=== PATIENT | female | born 1950 | race Caucasian/White ===

== ENCOUNTER 2017-10-26 06:06 | Inpatient (IN) | payer OTHER ==
[~2017-10-26] VITALS: Ht 152.4 cm; Wt 155.2 kg
[~2017-10-26 06:06] MED LIST: ATOR10; ATOR20 PO; Augmentin 875-1 EACH PO; CAPHYD PO; CLAR500 PO; CODGUAEL PO; CYCL10 PO; FERR325 PO; FURO20 PO; Flonase 0.05% N16 GM; HYDCHL25 PO; HYDGUAL120 PO; LOVA20 PO; MELO7.5 PO; METO100 PO; METO50 PO; Norco 5-325 Ta1 EACH PO; OMEP20ER; OMEP20ER PO; PANT40 PO; PROACE100; PROCODE120 PO; Prednisone20 MG PO; Protonix40 MG PO; RANI150 PO; ROFE25; RXHYDGUAS PO; SIMV10 PO; SUCR1; UNKNOWN BP MED; WARF2.5 PO; WARF3 PO; WARF5 PO; [UNRECOGNIZED DRUG - OTHER]
[2017-10-26] MEDS ORDERED: ATOR20 PO (06:35)
[2017-10-26] MEDS ORDERED: FURO40 PO (06:36)
[2017-10-26] MEDS ORDERED: ASPI325 PO (06:36)
[2017-10-26] MEDS ORDERED: Metoprolol Tar100 MG PO (06:36)
[2017-10-26] MEDS ORDERED: POTCHL10ER PO (06:36)
[2017-10-26] MEDS ORDERED: PANT40 PO (06:37)
[2017-10-26] MEDS ORDERED: AMLO5 PO (06:37)
[2017-10-26 06:39] LABS: BASOPHILS ABSOLUTE AUTO 0.08 K/mm3 (0.00-0.23); BASOPHILS PERCENT AUTO 0 % (0-2); EOSINOPHILS ABSOLUTE AUTO 0.26 K/mm3 (0.00-0.68); EOSINOPHILS PERCENT AUTO 1 % (0-6); Hematocrit 41.5 % (33.0-51.0); Hemoglobin 13.1 g/dL (11.5-16.0); IMMATURE GRAN ABSOLUTE AUTO 0.16 K/mm3 (0.00-0.10); IMMATURE GRAN PERCENT AUTO 1 % (0-1); LYMPHOCYTES ABSOLUTE AUTO 1.64 K/mm3 (0.84-5.20); LYMPHOCYTES PERCENT AUTO 7 % (21-46); MONOCYTES ABSOLUTE AUTO 1.18 K/mm3 (0.16-1.47); MONOCYTES PERCENT AUTO 5 % (4-13); Mean Corpuscular HGB 28.8 pg (26.0-34.0); Mean Corpuscular HGB Conc 31.6 g/dL (31.5-36.5); Mean Corpuscular Volume 91 fL (80-100); Mean Platelet Volume 9.1 fL (9.1-12.4); NEUTROPHILS ABSOLUTE AUTO 18.83 K/mm3 (1.96-9.15); NEUTROPHILS PERCENT AUTO 85 % (41-73); Platelet Count 301 K/mm3 (150-400); RDW Standard Deviation 49.8 fL (35.1-46.3); Red Blood Cell Count 4.55 M/mm3 (3.80-5.20); White Blood Cell Count 22.15 K/mm3 (4.00-11.30)
[2017-10-26 06:59] LABS: PCO2 Arterial 42.4 mmHg (35-45); PO2 Arterial 79.8 mmHg (80-100); pH Blood Arterial 7.42 (7.35-7.45)
[2017-10-26 07:00] LABS: Prothrombin Time Results 10.4 Sec (9.7-11.5)
[2017-10-26 07:01] LABS: Alanine Aminotransfer (ALT/SGP 18 U/L (12-78); Albumin, Blood 3.4 g/dL (3.4-5.0); Albumin/Globulin Ratio 0.7 (0.8-1.8); Alk Phos 99 U/L (50-136); Anion Gap 12 mmol/L (6-16); Aspartate Aminotrans (AST/SGOT 24 U/L (12-37); Bilirubin, Total 0.7 mg/dL (0.1-1.0); Blood Urea Nitrogen 11 mg/dL (8-24); CO2, Blood 26 mmol/L (21-32); Chloride, Blood 101 mmol/L (98-108); Creatinine, Blood 0.61 mg/dL (0.40-1.00); Globulin, Blood 5.2 g/dL (2.2-4.0); Glomerular Filtration Rate >60 (60-); Glucose, Blood 143 mg/dL (70-99); Potassium, Blood 3.2 mmol/L (3.5-5.5); Sodium, Blood 139 mmol/L (136-145); Total Protein, Blood 8.6 g/dL (6.4-8.2); Troponin I <0.015 ng/mL (0.000-0.040)
[2017-10-27 04:47] LABS: Hematocrit 35.2 % (33.0-51.0); Hemoglobin 11.1 g/dL (11.5-16.0); Mean Corpuscular HGB 28.1 pg (26.0-34.0); Mean Corpuscular HGB Conc 31.5 g/dL (31.5-36.5); Mean Corpuscular Volume 89 fL (80-100); Mean Platelet Volume 9.2 fL (9.1-12.4); Platelet Count 247 K/mm3 (150-400); RDW Coefficient Variation 15.2 % (11.7-14.2); RDW Standard Deviation 50.2 fL (35.1-46.3); Red Blood Cell Count 3.95 M/mm3 (3.80-5.20); White Blood Cell Count 10.17 K/mm3 (4.00-11.30)
[2017-10-27 05:08] LABS: Anion Gap 8 mmol/L (6-16); Blood Urea Nitrogen 8 mg/dL (8-24); Bun/Creatinine Ratio 12.5 (12.0-20.0); CO2, Blood 30 mmol/L (21-32); Calcium, Blood 8.6 mg/dL (8.5-10.1); Chloride, Blood 103 mmol/L (98-108); Creatinine, Blood 0.64 mg/dL (0.40-1.00); Glomerular Filtration Rate >60 (60-); Glucose, Blood 82 mg/dL (70-99); Magnesium, Blood 1.9 mg/dL (1.6-2.4); Phosphorus, Blood 3.5 mg/dL (2.5-4.9); Potassium, Blood 3.4 mmol/L (3.5-5.5); Sodium, Blood 141 mmol/L (136-145)
[2017-10-29 04:25] LABS: Anion Gap 8 mmol/L (6-16); Blood Urea Nitrogen 17 mg/dL (8-24); Bun/Creatinine Ratio 24.2 (12.0-20.0); CO2, Blood 34 mmol/L (21-32); Calcium, Blood 9.2 mg/dL (8.5-10.1); Chloride, Blood 96 mmol/L (98-108); Glomerular Filtration Rate >60 (60-); Glucose, Blood 97 mg/dL (70-99); Potassium, Blood 3.3 mmol/L (3.5-5.5); Sodium, Blood 138 mmol/L (136-145)
[2017-10-29] MEDS ORDERED: GUAIFENESIN-CODE5 ML PO (11:49)
[2017-10-29] MEDS ORDERED: FLUC150A PO (11:49)
[2017-10-29] MEDS ORDERED: Mag-Al Liquid30 ML PO (11:50)
[2017-10-29] MEDS ORDERED: NYSTRIT TOP (11:50)
[2017-10-29] MEDS ORDERED: AMOX875 PO (11:51)
[2017-10-30 04:52] LABS: Anion Gap 9 mmol/L (6-16); Blood Urea Nitrogen 22 mg/dL (8-24); Bun/Creatinine Ratio 32.8 (12.0-20.0); CO2, Blood 33 mmol/L (21-32); Calcium, Blood 9.4 mg/dL (8.5-10.1); Chloride, Blood 95 mmol/L (98-108); Creatinine, Blood 0.67 mg/dL (0.40-1.00); Glomerular Filtration Rate >60 (60-); Glucose, Blood 104 mg/dL (70-99); Potassium, Blood 3.2 mmol/L (3.5-5.5); Sodium, Blood 137 mmol/L (136-145)
[2018-01-15] MEDS ORDERED: Flonase 0.05% N16 GM (11:46)
[2018-01-15] MEDS ORDERED: Cheratussin AC118 ML PO (11:46)
[2018-07-05] MEDS ORDERED: ALBU90OI6 INH (18:00)
[2018-07-05] MEDS ORDERED: ANORO ELLIPTA1 EACH INH (18:01)
[2018-07-05] MEDS ORDERED: Prednisone20 MG PO (20:13)
[2018-07-05] MEDS ORDERED: BENZ100A PO (20:13)
== END 2017-10-30 16:27 | DRG 871 ==
LOC: ER 06:06 → PCU 08:39
PROVIDERS: Emergency Medicine; Family Medicine; Internal Medicine
PROC: 3E0234Z Introduction of Serum, Toxoid and Vaccine into Muscle, Percutaneous Approach (ICD-10-PCS; principal; 2017-10-27)
DX: A41.9 Sepsis, unspecified organism (principal); J96.01 Acute respiratory failure with hypoxia; I50.33 Acute on chronic diastolic (congestive) heart failure; I48.91 Unspecified atrial fibrillation; J18.9 Pneumonia, unspecified organism; I11.0 Hypertensive heart disease with heart failure; Z68.43 Body mass index [BMI] 50.0-59.9, adult; Z23 Encounter for immunization; E78.5 Hyperlipidemia, unspecified; E66.01 Morbid (severe) obesity due to excess calories; B37.9 Candidiasis, unspecified; E87.6 Hypokalemia; K21.9 Gastro-esophageal reflux disease without esophagitis; G47.33 Obstructive sleep apnea (adult) (pediatric); Z87.440 Personal history of urinary (tract) infections; Z91.041 Radiographic dye allergy status; Z91.048 Other nonmedicinal substance allergy status; Z79.01 Long term (current) use of anticoagulants; Z79.82 Long term (current) use of aspirin; Z79.899 Other long term (current) drug therapy; Z99.89 Dependence on other enabling machines and devices
CPT/HCPCS: 36415; 36600; 51702; 71045; 80048; 80053; 82803; 83605; 83735; 83880; 84100; 84484; 85025; 85027; 85379; 85610; 87040; 93005; 93010; 93306; 94010; 94640; 94660; 94664; 94762; 97110; 97162; 97166; 97530; 97535; 98960; 99285; G8978; G8979; G8987; G8988; J0456; J0696; J1200; J1650; J1940; J3480; J7030; J7050; Q2038

== ENCOUNTER → 2017-11-14 | Outpatient (CLI) | payer OTHER ==
[~2017-11-14] MED LIST changes: +ALBU90OI6 INH; +AMLO5 PO; +AMOX875 PO; +ANORO ELLIPTA1 EACH INH; +ASPI325 PO; +BENZ100A PO; +Cheratussin AC118 ML PO; +FLUC150A PO; +FURO40 PO; +GUAIFENESIN-CODE5 ML PO; +Mag-Al Liquid30 ML PO; +Metoprolol Tar100 MG PO; +NYSTRIT TOP; +POTCHL10ER PO
== END | disposition home or self-care (01) ==
LOC: LAB 12:01 → LAB SHORT 12:01
DX: L30.9 Dermatitis, unspecified (principal); B35.3 Tinea pedis
CPT/HCPCS: 87102; 87106; 87220

== ENCOUNTER 2018-05-06 16:08 | Emergency (ER) | payer OTHER ==
[~2018-05-06] VITALS: Ht 152.4 cm; Wt 149.7 kg
[~2018-05-06 16:08] MED LIST changes: -ALBU90OI6 INH; -ANORO ELLIPTA1 EACH INH; -BENZ100A PO
[2018-05-06 17:56] LABS: BASOPHILS ABSOLUTE AUTO 0.05 K/mm3 (0.00-0.23); BASOPHILS PERCENT AUTO 1 % (0-2); EOSINOPHILS ABSOLUTE AUTO 0.23 K/mm3 (0.00-0.68); EOSINOPHILS PERCENT AUTO 2 % (0-6); Hematocrit 38.1 % (33.0-51.0); Hemoglobin 12.7 g/dL (11.5-16.0); IMMATURE GRAN ABSOLUTE AUTO 0.04 K/mm3 (0.00-0.10); IMMATURE GRAN PERCENT AUTO 0 % (0-1); LYMPHOCYTES ABSOLUTE AUTO 1.72 K/mm3 (0.84-5.20); LYMPHOCYTES PERCENT AUTO 16 % (21-46); MONOCYTES ABSOLUTE AUTO 0.88 K/mm3 (0.16-1.47); MONOCYTES PERCENT AUTO 8 % (4-13); Mean Corpuscular HGB 29.4 pg (26.0-34.0); Mean Corpuscular HGB Conc 33.3 g/dL (31.5-36.5); Mean Corpuscular Volume 88 fL (80-100); Mean Platelet Volume 9.3 fL (9.1-12.4); NEUTROPHILS ABSOLUTE AUTO 8.14 K/mm3 (1.96-9.15); NEUTROPHILS PERCENT AUTO 73 % (41-73); Platelet Count 262 K/mm3 (150-400); RDW Coefficient Variation 14.8 % (11.7-14.2); RDW Standard Deviation 47.6 fL (35.1-46.3); Red Blood Cell Count 4.32 M/mm3 (3.80-5.20); White Blood Cell Count 11.06 K/mm3 (4.00-11.30)
[2018-05-06 18:41] LABS: Alanine Aminotransfer (ALT/SGP 18 U/L (12-78); Albumin, Blood 3.1 g/dL (3.4-5.0); Albumin/Globulin Ratio 0.7 (0.8-1.8); Alk Phos 78 U/L (50-136); Anion Gap 7 mmol/L (6-16); Aspartate Aminotrans (AST/SGOT 26 U/L (12-37); Bilirubin, Total 0.4 mg/dL (0.1-1.0); Blood Urea Nitrogen 11 mg/dL (8-24); CO2, Blood 34 mmol/L (21-32); Chloride, Blood 101 mmol/L (98-108); Creatinine, Blood 0.69 mg/dL (0.40-1.00); Globulin, Blood 4.6 g/dL (2.2-4.0); Glomerular Filtration Rate >60 (60-); Glucose, Blood 109 mg/dL (70-99); Potassium, Blood 2.9 mmol/L (3.5-5.5); Sodium, Blood 142 mmol/L (136-145); Total Protein, Blood 7.7 g/dL (6.4-8.2)
== END 2018-05-06 19:45 | disposition home or self-care (01) ==
LOC: ER 16:08
PROVIDERS: Internal Medicine
DX: R05 Cough (principal); E87.6 Hypokalemia; I10 Essential (primary) hypertension; E78.00 Pure hypercholesterolemia, unspecified; K21.9 Gastro-esophageal reflux disease without esophagitis; I48.91 Unspecified atrial fibrillation; Z91.041 Radiographic dye allergy status; Z91.048 Other nonmedicinal substance allergy status; Z79.899 Other long term (current) drug therapy; Z79.82 Long term (current) use of aspirin
CPT/HCPCS: 71046; 80053; 83880; 85025; 99283-25

== ENCOUNTER 2018-11-15 18:14 | Emergency (ER) | payer OTHER ==
[~2018-11-15] VITALS: Ht 152.4 cm; Wt 119.3 kg
[~2018-11-15 18:14] MED LIST changes: +ALBU90OI6 INH; +ANORO ELLIPTA1 EACH INH; +BENZ100A PO
[2018-11-15] MEDS ORDERED: Cheratussin AC118 ML PO (20:42)
[2018-11-15] MEDS ORDERED: Prednisone20 MG PO (20:42)
== END 2018-11-15 21:03 | disposition home or self-care (01) ==
LOC: ER 18:14
DX: J44.0 Chronic obstructive pulmonary disease with (acute) lower respiratory infection (principal); J20.9 Acute bronchitis, unspecified; J44.1 Chronic obstructive pulmonary disease with (acute) exacerbation; Z91.041 Radiographic dye allergy status; Z79.899 Other long term (current) drug therapy; Z79.82 Long term (current) use of aspirin; I10 Essential (primary) hypertension; E78.00 Pure hypercholesterolemia, unspecified; I48.91 Unspecified atrial fibrillation
CPT/HCPCS: 71046; 99283-25

== ENCOUNTER 2020-02-07 19:17 | Inpatient (IN) | payer OTHER ==
[~2020-02-07] VITALS: Ht 152.4 cm; Wt 132.7 kg
[2020-02-07] MEDS ORDERED: CELEBREX200 MG PO (19:41)
[2020-02-07] MEDS ORDERED: Cetirizine HCl10 MG PO (19:42)
[2020-02-07] MEDS ORDERED: MONT10T PO (19:42)
[2020-02-07] MEDS ORDERED: NEURONTIN300 MG PO (19:43)
[2020-02-07] MEDS ORDERED: HYDROCODONE-AC1 EAC1 PO (19:44)
[2020-02-07] MEDS ORDERED: FUROSEMIDE40 MG PO (19:44)
[2020-02-07 19:55] LABS: Source, Urine Voided
[2020-02-07 19:59] LABS: BASOPHILS ABSOLUTE AUTO 0.07 K/mm3 (0.00-0.23); BASOPHILS PERCENT AUTO 0 % (0-2); EOSINOPHILS ABSOLUTE AUTO 0.07 K/mm3 (0.00-0.68); EOSINOPHILS PERCENT AUTO 0 % (0-6); Hematocrit 40.2 % (33.0-51.0); Hemoglobin 13.2 g/dL (11.5-16.0); IMMATURE GRAN ABSOLUTE AUTO 0.23 K/mm3 (0.00-0.10); IMMATURE GRAN PERCENT AUTO 1 % (0-1); LYMPHOCYTES PERCENT AUTO 3 % (21-46); MONOCYTES ABSOLUTE AUTO 1.52 K/mm3 (0.16-1.47); MONOCYTES PERCENT AUTO 6 % (4-13); Mean Corpuscular HGB Conc 32.8 g/dL (31.5-36.5); Mean Corpuscular Volume 88 fL (80-100); Mean Platelet Volume 9.6 fL (9.1-12.4); NEUTROPHILS ABSOLUTE AUTO 24.08 K/mm3 (1.96-9.15); NEUTROPHILS PERCENT AUTO 90 % (41-73); Platelet Count 248 K/mm3 (150-400); RDW Coefficient Variation 14.3 % (11.7-14.2); RDW Standard Deviation 45.8 fL (35.1-46.3); Red Blood Cell Count 4.55 M/mm3 (3.80-5.20); White Blood Cell Count 26.77 K/mm3 (4.00-11.30)
[2020-02-07 20:01] LABS: Bilirubin, Urine Neg (Neg); Blood, Urine 5+ (Neg); Glucose Qualitative, Urine Neg (Neg); Ketones, Urine 1+ (Neg); Leukocyte Esterase, Urine 3+ (Neg); Nitrite, Urine Neg (Neg); Protein, Urine 3+ (Neg); Urobilinogen, Urine 1+ (Normal)
[2020-02-07 20:10] LABS: Alanine Aminotransfer (ALT/SGP 15 U/L (12-78); Albumin/Globulin Ratio 0.7 (0.8-1.8); Alk Phos 90 U/L (50-136); Anion Gap 8 mmol/L (6-16); Aspartate Aminotrans (AST/SGOT 22 U/L (12-37); Bilirubin, Total 0.8 mg/dL (0.1-1.0); Blood Urea Nitrogen 18 mg/dL (8-24); CO2, Blood 28 mmol/L (21-32); Calcium, Blood 9.1 mg/dL (8.5-10.1); Chloride, Blood 100 mmol/L (98-108); Globulin, Blood 4.6 g/dL (2.2-4.0); Glomerular Filtration Rate 47 (60-); Glucose, Blood 133 mg/dL (70-99); Potassium, Blood 3.3 mmol/L (3.5-5.5); Sodium, Blood 136 mmol/L (136-145); Total Protein, Blood 7.6 g/dL (6.4-8.2); Troponin I <0.015 ng/mL (0.000-0.040)
[2020-02-07 20:12] LABS: Appearance, Urine Cloudy (Clear); Color, Urine Yellow (P-Yellow)
[2020-02-07 20:13] LABS: Amorphous Light (0-Heavy); Bacteria Many /hpf; Squamous Epithelial Cells Few /hpf (Few); White Blood Cells, Urine TNTC /hpf (0-5)
--- NOTE | 2020-02-07 23:08 | NUR ---
transfer report from [facility] RECHECKER on PT being admitted with UTI & sepsis. Has morbid obesity MALINDA uses CPAP didn't bring to hospital, CHF, AFIB with RVR. Has 2nd liter of IVF running & recieved rocephin. On 2 l NC. Await admission.
--- NOTE | 2020-02-08 01:52 | NUR ---
69 year old female admitted with sepsis uti & lactic acid increased from 2.6 to 3.6 & she got fever 102.8 down to 101.0 oral. Afib with rvr tele applied per DR Persaud & rate 110s 120s at rest . has cpap applied by RT. BRIAN Barcenas called & wants PT transferred off floor for severe sepsis & she wants to have her sent to room ICU 3 PCU status, give IV levaquin & give additional 1 l NS bolus per body weight. Transfer report to [facility] HELPER TEACHER & will transport as soon as I verify orders. PT is full code status.
--- NOTE | 2020-02-08 03:10 | NUR ---
DTR Heather at [phone] updated on change to ICU bed 3 PCU status. PT transferred to ICU bed 3 PCU status for severe sepsis. Bedside report to Diana Irwin RN.
[2020-02-08 03:51] LABS: Hematocrit 35.3 % (33.0-51.0); Hemoglobin 11.3 g/dL (11.5-16.0); Mean Corpuscular HGB 28.6 pg (26.0-34.0); Mean Corpuscular Volume 89 fL (80-100); Mean Platelet Volume 9.4 fL (9.1-12.4); Platelet Count 198 K/mm3 (150-400); RDW Coefficient Variation 14.4 % (11.7-14.2); RDW Standard Deviation 46.9 fL (35.1-46.3); Red Blood Cell Count 3.95 M/mm3 (3.80-5.20); White Blood Cell Count 37.78 K/mm3 (4.00-11.30)
--- NOTE | 2020-02-08 04:00 | NUR ---
PT TO ICU 3 @ 0224 VIA HOSPITAL BED WITH MEDICAL FLOOR RN AND LAMINATING MACHINE OPERATOR, PT ALERT AND ORIENTED TO SELF, PLACE, EVENT, DATE AND FOLLOWING DIRECTIONS. O2 SATURATIONS>92% ON 2L PER NC, MONITOR SHOWS AFIB WITH HR 110-120'S, PT HYPOTENSIVE, ABX INFUSING. PT REPORTS MILD FLANK PAIN, USING BEDPAN TO VOID, ATTENDS IN PLACE. PT WITH REDDENED AREAS TO L FLANK, BREAST AND BACK, R POPLITEAL, REPORTS USING NYSTATIN AT HOME FOR THESE AREAS, SEE PHOTOS. IV TO RAC. 1L NS BOLUS BROUGHT DOWN WITH PT, BOLUS INFUSION STARTED BY THIS RN. CALL TO DR GAFFNEY @ 0330 REGARDING BP AND PTS ADMISSION STATUS, ORDERS FOR ICU STATUS AND CRITICAL CARE CONSULT. CALL PLACED TO DR ARANGO FOR CRITICAL CARE CONSULT, SPOKE WITH DR ARANGO @ 0330. PT TO BED CAM WITH VERY LITTLE URINE OUTPUT, APPROX 50ml. PT DENIES ANY CP OR SOB.
[2020-02-08 04:06] LABS: Calcium, Blood 7.7 mg/dL (8.5-10.1); Creatinine, Blood 1.27 mg/dL (0.40-1.00); Potassium, Blood 3.7 mmol/L (3.5-5.5)
[2020-02-08 04:10] LABS: BAND PERCENT MAN 11 % (0-8); BASOPHILS PERCENT MAN 0 % (0-2); EOSINOPHILS PERCENT MAN 0 % (0-6); LYMPHOCYTES ABSOLUTE MAN 2.64 K/mm3 (0.84-5.20); LYMPHOCYTES PERCENT MAN 7 % (21-46); MONOCYTES ABSOLUTE MAN 1.88 K/mm3 (0.16-1.47); MONOCYTES PERCENT MAN 5 % (4-13); NEUTROPHILS ABSOLUTE MAN 33.24 K/mm3 (1.96-9.15); SEG NEUTROPHILS PERCENT MAN 77 % (41-73); TOTAL CELLS COUNTED 100
--- NOTE | 2020-02-08 06:46 | NUR ---
SHIFT SUMMARY PT BECAME MORE HYPOTENSIVE AFTER ARRIVAL TO ICU, CONSULT CALLED TO DR ARANGO, DR ARANGO TO ICU, PLACED CENTRAL LINE TO RIJ, LEVOPHED INITIATED AND CURRENTLY INFUSING @ 5mcg/min (18.8ml/hr). PT REMAINS ORIENTED TO SELF, EVENT, LOCATION AND FOLLOWING DIRECTIONS BUT IS VERY DROWSY AND DIFFCULT TO AROUSE TOWARDS END OF SHIFT. CPAP IN PLACE WITH 2L BLEED IN, O2 SATURATIONS >95%. PT REMAINS IN AFIB WITH HR 100-120'S, MAPS>65 ON LEVO GTT. PT AFEBRILE SINCE ARRIVAL TO ICU. SKIN REMAINS WARM WITH REDDENED AREAS TO SKIN FOLDS, FOUL ODOR PRESENT. PT TOLERATING PO FLUIDS. PT DENIES ANY NEEDS AT THIS TIME.
--- NOTE | 2020-02-08 07:36 | NUR ---
ASSUMED CARE: RECEIVED BEDSIDE REPORT FROM NOC RN. PT APPEARS TO BE SLEEPING WITH CPAP IN PLACE AND NO ACUTE DISTRESS NOTED AT THIS TIME. LEVOPHED IS NOTED TO BE RUNNING AT 5 MCG/MIN ALONG WITH A MAINTENCE FLUID OF NS @ 100ML/HR. WILL CONTINUE TO MONITOR AND ASSESS FURHTER.
--- NOTE | 2020-02-08 08:15 | NUR ---
SEWELL: PLACED PT ON BEDPAN AFTER PT STATES SHE NEEDED TO URINATE. PT STATES SHE IS UNABLE TO AFTER LEAVING HER ON IT FOR A WHILE. UPON ASSESSMENT OF I&O, FURTHER REVIEW OF THE CHART AND TALKING WITH THE DR PLACED A TEMP SEWELL FOR STRICT I&O. UA SENT TO LAB.
[2020-02-08 08:37] LABS: Source, Urine Catheter
[2020-02-08 08:50] LABS: Bilirubin, Urine Neg (Neg); Blood, Urine 5+ (Neg); Glucose Qualitative, Urine Neg (Neg); Ketones, Urine Neg (Neg); Leukocyte Esterase, Urine 3+ (Neg); Nitrite, Urine Pos (Neg); Protein, Urine 3+ (Neg); Urobilinogen, Urine 1+ (Normal)
[2020-02-08 09:35] LABS: Appearance, Urine Turbid (Clear); Color, Urine Yellow (P-Yellow)
[2020-02-08 09:38] LABS: White Blood Cells, Urine TNTC /hpf (0-5)
[2020-02-08 09:39] LABS: Amorphous Heavy (0-Heavy); Bacteria Many /hpf; Squamous Epithelial Cells Few /hpf (Few)
--- NOTE | 2020-02-08 18:33 | NUR ---
BP & HR: PT LEVO WAS TURNED OFF AT 1655. PT HR WAS NOTED TO ELIVATED INTO THE 140'S WHEN PT WORKED WITH PHYSICAL THERAPY TO STAND AT THE BEDSIDE, BUT THEN HR APPEARED TO LEVEL OUT. AT APPROX 1730 PT HR IS NOTED TO BE CLIMBING AND IS HANGING OUT IN THE 120-140'S. DR ARANGO WAS NOTIFIED AND NEW ORDERS WERE PLACED. WILL CONTINUE TO MONITOR.
--- NOTE | 2020-02-08 18:51 | NUR ---
TEMP: PT TEMP WAS NOTED TO BE 98.8 TEMPORALLY AND CORE IS NOTED TO BE ELIVATED. PT STATES SHE DOES NOT FEEL COLD PREVIOUSLY.
--- NOTE | 2020-02-08 19:42 | NUR ---
ASSUMED CARE OF PT AT 1915. REPORT RECEIVED AT BEDSIDE. PT PRESENTS IN BED. ALERT AND ORIENTED. PLEASANT AND COOPERATIVE WITH CARE AND ASSESSMENT. IN NO APPARENT DISTRESS. WILL REVIEW CHART AND PLAN OF CARE FOR THIS PT.
--- NOTE | 2020-02-09 | NUR ---
SPOKE WITH BRIAN MIR CONCERNING PT'S TEMPERATURE ELEVATION AND NOT RESPONDING TO TYLENOL. ORDERS RECEIVED. HAVE TAUGHT PT NEW ORDERS INCLUDING CHANGE IN ANTIBIOTICS. PT VERBALIZES UNDERSTANDING. TEACHING ALSO DONE ON NOT APPLYING MORE BLANKETS WHEN SHE IS FEBRILE. SEE VITAL SIGN FLOWSHEET FOR TEMPERATURE PROGRESSION. HAVE MEDICATED PT WITH IBUPROFEN WITH NOTED TEMPERATURE DECLINE. WILL CONTINUE TO MONITOR PT.
--- NOTE | 2020-02-09 00:49 | NUR ---
PT'S BLOOD PRESSURE HAS BEEN WITH SBP IN 80'S AFTER SHE HAS GONE TO SLEEP. WILL CONSIDER RESTARTING LEVOPHED IF MAP DECREASES. CURRENTLY MAP MAINTAINING > 60. PT ASYMPTOMATIC.
--- NOTE | 2020-02-09 03:13 | NUR ---
PT'S BLOOD PRESSURES REMAIN LOW. HAVE RESTARTED LEVOPHED AT 4 MCG'S. WILL TITRATE TO MAINTAIN MAP > 60. OF NOTE: PT TURNED TO LEFT SIDE WITH HER RIGHT ARM ELEVATED ABOVE HEART. WILL CLOSELY MONITOR. PT AFEBRILE AT THIS TIME.
[2020-02-09 04:40] LABS: Hematocrit 33.8 % (33.0-51.0); Hemoglobin 10.8 g/dL (11.5-16.0); Mean Corpuscular HGB 28.8 pg (26.0-34.0); Mean Corpuscular Volume 90 fL (80-100); Mean Platelet Volume 9.4 fL (9.1-12.4); Platelet Count 198 K/mm3 (150-400); RDW Coefficient Variation 14.9 % (11.7-14.2); RDW Standard Deviation 49.1 fL (35.1-46.3); Red Blood Cell Count 3.75 M/mm3 (3.80-5.20); White Blood Cell Count 23.76 K/mm3 (4.00-11.30)
[2020-02-09 04:56] LABS: BAND PERCENT MAN 4 % (0-8); BASOPHILS PERCENT MAN 0 % (0-2); EOSINOPHILS PERCENT MAN 0 % (0-6); LYMPHOCYTES ABSOLUTE MAN 1.42 K/mm3 (0.84-5.20); LYMPHOCYTES PERCENT MAN 6 % (21-46); MONOCYTES ABSOLUTE MAN 0.95 K/mm3 (0.16-1.47); MONOCYTES PERCENT MAN 4 % (4-13); MYELOCYTE ABSOLUTE MAN 0.23 K/mm3 (0.00-0.00); MYELOCYTE PERCENT MAN 1 % (0-0); NEUTROPHILS ABSOLUTE MAN 21.14 K/mm3 (1.96-9.15); SEG NEUTROPHILS PERCENT MAN 85 % (41-73); TOTAL CELLS COUNTED 100
[2020-02-09 04:58] LABS: Bun/Creatinine Ratio 16.5 (12.0-20.0); Calcium, Blood 8.1 mg/dL (8.5-10.1); Creatinine, Blood 1.09 mg/dL (0.40-1.00); Magnesium, Blood 1.7 mg/dL (1.6-2.4); Phosphorus, Blood 2.5 mg/dL (2.5-4.9); Potassium, Blood 4.1 mmol/L (3.5-5.5)
--- NOTE | 2020-02-09 07:06 | NUR ---
LEVOPHED CURRENTLY ON STANDBY. PT'S BLOOD PRESSURE STABLE WITH MAP REMAINING >60. PT BEGINS TO RUN FEVER AGAIN, AND IS MEDICATED WITH 1000 MG TYLENOL. PENDING RESULTS. PT HAS TOLERATED CPAP THROUGHOUT THE SHIFT. REPORT GIVEN TO MERY MEEKS.
--- NOTE | 2020-02-09 07:45 | NUR ---
ASSUMED CARE: RECEIVED BEDSIDE REPORT FROM NOC RN. PT IN ROOM WITH SEVERAL BLANKETS ON AND TEMP IS NOTED TO BE ELIVATED 101.7 APPROX, REMOVED ALL BLANKETS EXCEPT FOR THE BOTTOM ONE. PT APPEARED TO BE SLEEPING PRIOR TO ENTERING THE ROOM ON CPAP WITH EVEN CHEST RISE AND FALL. NO ACUTE DISTRESS NOTED AT THIS TIME. WILL CONTINUE TO MONIOR AND ASSESS FURTHER. NO LEVOPHED RUNNING AT THIS TIME. BP APPEARS STABLE.
--- NOTE | 2020-02-09 14:45 | NUR ---
TO CT: PT WAS SITTING IN THE RECLINER WHEN SPECIALIZED DEVELOPER ARIVED TO TAKE PT TO CT. PT WAS ABLE TO TRANSFER TO THE IMMAGING CART WITH FWW. DICONECTED PT FROM ALL CORDS AND PLACED ON A TELEMETRY IN ORDER TO HAVE THE TLEMETRY TECH MONITOR WHILE AWAY.
--- NOTE | 2020-02-09 16:42 | NUR ---
Initial spiritual care note: Mrs. May states she has a strong john in a loving and attentive God. She feels well-loved and supported by her family and beleives she is being healed. She was appreciaitive of prayer and gentle encouragement. No fears/concerns presented. I will remain available.
--- NOTE | 2020-02-09 17:23 | NUR ---
PT RECEIVED FROM ICU VIA WHEELCHAIR, RECEIVED REPORT FROM STEFANI MEEKS. PT IS HERE FOR SEPSIS, PT RECEIVING IV ABO. PT IS ALERT AND ORIENTED X4, HRR AFIB ON THE 90'S-100'S DENIES CP/PRESSURE AT THIS TIME, SATS ABOVE 92% ON ROOMAIR, CPAP ON STANDBY FOR NIGHT TIME USE, AFEBRILE. 2PA ASSISTS VIA WALKER TO BEDSIDE COMMODE TOLERATING WELL. REDNESS ON SKIN FOLDS AND COCCYX. PSORIASIS ON NECK AND BACK OF HEAD. PT ABLE TO MAKE NEEDS KNOWN, CURRENTLY UP IN RECLINER EATING DINNER CALL LIGHTS WITHIN REACH. WILL MONITOR
--- NOTE | 2020-02-09 18:58 | NUR ---
PT WAS TESTED POSITIVE FOR COVID 19 AFTER RAPID TESTING WAS DONE AND COLLECTED. PROVIDERS INVOLVED MADE AWARE, PLAN FOR COBRA TRANSFER WAS CANCELLED. PT WAS PUT ON ISOLATION, PT TO STAY UNTIL FURTHER NOTICE BY PROVIDERS. TO DISCUSS THE PLAN WITH THE PATIENT IN THE MORNING. PT HAS BEEN ASYMPTOMATIC ALL SHIFT. WILL MONITOR
[2020-02-10 04:20] LABS: BASOPHILS ABSOLUTE AUTO 0.02 K/mm3 (0.00-0.23); BASOPHILS PERCENT AUTO 0 % (0-2); EOSINOPHILS ABSOLUTE AUTO 0.09 K/mm3 (0.00-0.68); EOSINOPHILS PERCENT AUTO 1 % (0-6); Hematocrit 33.6 % (33.0-51.0); Hemoglobin 10.8 g/dL (11.5-16.0); IMMATURE GRAN ABSOLUTE AUTO 0.08 K/mm3 (0.00-0.10); IMMATURE GRAN PERCENT AUTO 1 % (0-1); LYMPHOCYTES ABSOLUTE AUTO 1.37 K/mm3 (0.84-5.20); LYMPHOCYTES PERCENT AUTO 13 % (21-46); MONOCYTES ABSOLUTE AUTO 0.79 K/mm3 (0.16-1.47); MONOCYTES PERCENT AUTO 7 % (4-13); Mean Corpuscular HGB 28.6 pg (26.0-34.0); Mean Corpuscular HGB Conc 32.1 g/dL (31.5-36.5); Mean Corpuscular Volume 89 fL (80-100); Mean Platelet Volume 9.6 fL (9.1-12.4); NEUTROPHILS ABSOLUTE AUTO 8.61 K/mm3 (1.96-9.15); NEUTROPHILS PERCENT AUTO 79 % (41-73); Platelet Count 180 K/mm3 (150-400); RDW Coefficient Variation 14.8 % (11.7-14.2); RDW Standard Deviation 47.8 fL (35.1-46.3); Red Blood Cell Count 3.77 M/mm3 (3.80-5.20); White Blood Cell Count 10.96 K/mm3 (4.00-11.30)
[2020-02-10 04:41] LABS: Bun/Creatinine Ratio 15.4 (12.0-20.0); Calcium, Blood 8.5 mg/dL (8.5-10.1); Creatinine, Blood 0.98 mg/dL (0.40-1.00); Magnesium, Blood 1.9 mg/dL (1.6-2.4); Phosphorus, Blood 2.4 mg/dL (2.5-4.9); Potassium, Blood 3.6 mmol/L (3.5-5.5)
--- NOTE | 2020-02-10 05:45 | NUR ---
SHIFT SUMMARY NO ACUTE CHANGES T/O NIGHT. PT SLEPT WITH CPAP ON 1L. PATIENT HAD A RESTFUL NIGHT WITH MINIMAL DISTURBANCES. TEMP INCREASED TO 100.1, MEDICATED PT WITH PRN TYLENOL. TEMP 98,1. PT HAD LOOSE STOOL AND DIDN'T REALIZE SHE HAD A BM. PUT A BREIF ON HER. PT DENIES SOB, C/P AT THIS TIME. CALL LIGHT IN REACH.
--- NOTE | 2020-02-10 08:15 | NUR ---
AM NOTE... ASSUMED CARE OF PT APROX 0700, PT IS A&Ox4 AND 1P W/FWW TO THE CHAIR OR BSC. PT'S VS STABLE AT THIS TIME, PT IS IN AFIB IN THE 90'S-100'S PER MAJOR DONOR COORDINATOR. L/S CLEAR T/O DIM IN THE BASES ON RA, CPAP AT NIGHT. BT PRESENT AND HYPERACTIVE ABD IS LARGE, FIRM BUT NONTENDER TO PALP. TRACE EDEMA IS NOTED TO HER BLE. PT HAS AN IJ CENTRAL LINE THAT IS SL. SEWELL IS PATENT AND DRAINING TO GRAVITY IT IS TO BE D/C'D THIS AM. CALL LIGHT IN REACH WILL CONTINUE TO MONITOR.
--- NOTE | 2020-02-10 08:25 | NUR ---
PT UPDATE... PT'S HR WENT FROM 90'S-100'S AFIB TO 140'S-180'S RVR. PROVIDER IS AWARE. PT IS NOT SYMPTOMATIC AT THIS TIME. WILL CONTINUE TO MONITOR.
--- NOTE | 2020-02-10 09:19 | NUR ---
0840 The pt was having sustained atrial fibrillation with a ventricular rate of 160-190, so I was called to go see about the pt. The primary RN was with the doctor in another pt's room. The pt denied any distress, shortness of breath or discomfort. sTates that she feels fine. Blood pressure was greater than 150 systolic and greater than [address] Alexis came into the room, and as the pt was asymptomatic, he said to give her the scheduled metoprolol now, and call if her heart rate did not respond to this. 0925 The pt's heart rate is now 110-130. She remains aysmtomatic.
--- NOTE | 2020-02-10 18:46 | NUR ---
SHIFT SUMMARY... PT'S HR HAS BEEN IN THE 80'S-100'S WITH SPIKES UP TO THE 160'S WITH ACTIVITY. PT WAS MEDICATED PER EMAR. PT'S SEWELL WAS D/C'D THIS SHIFT AND PT HAS BEEN ABLE TO VOID IN THE BSC. PT HAS BEEN UP IN THE RECLINER CHAIR MOST OF THE DAY. VS HAVE BEEN STABLE. PT HAS HAD 2 INCONT LOOSE STOOLS THIS SHIFT. PT DENIES ANY CHEST PAIN/PRESSURE N/V OR SOB AND IS ASYPOMTOMATIC WITH INCREASES IN HER HEART RATE. CALL LIGHT IN REACH WILL CONTINUE TO MONITOR UNTIL REPORT IS GIVEN TO ONCOMING RN.
--- NOTE | 2020-02-11 06:01 | NUR ---
SHIFT SUMMARY PT SLEEPING IN ROOM COMFORTABLY AT THIS TIME. NO ACUTE CHANGES IN STATUS T/O NIGHT. PT REPORTS WAS VERY ACTIVE DURING DAY AND TIRED TONIGHT. RESP EVEN UNLABORED ON RA W/ SATS >92%. PT WORE CPAP T/O NIGHT AND LEONARD WELL. NO FURTHER BP OR HR INCREASES DURING NIGHT. PT DENIED OTHER NEEDS. CALL LIGHT IN REACH.
--- NOTE | 2020-02-11 08:38 | NUR ---
AM NOTE... ASSUMED CARE OF PT APROX 0700. PT IS A&Ox4 AND SBA W/FWW. PT WAS ADMITTED FOR SEPSIS. CURRENTLY PT'S VS STABLE. L/S CLEAR T/O ON RA CPAP FOR SLEEP. BT PRESENT AND HYPERACTIVE ABD SOFT AND NONTENDER TO PALP. PT IS CURRENTLY IN AFIB IN THE 90'S-100'S BUT WITH ACTIVITY HER HEART RATE JUMPS TO 180'S-200'S. PT IS NONSYMPTOMATIC WITH THE INCREASED HEART RATE. PT IS ANXIOUS TO D/C HOME, THE PROVIDER TOLD THE PT THAT MEDICATION CHANGES WERE MADE AND THAT WE NEEDED TO ENSURE HER HEART RATE WAS CONTROLLED BEFORE SHE COULD D/C HOME. PT VERBALIZED HER UNDERSTANDING. CALL LIGHT IN REACH WILL CONTINUE TO MONITOR.
[2020-02-11] MEDS ORDERED: METO100ER PO (16:50)
[2020-02-11] MEDS ORDERED: CIPR500 PO (16:51)
--- NOTE | 2020-02-11 17:26 | NUR ---
PT D/C HOME. PT D/C HOME WITH ALL OF PERSONAL BELONGINGS. IV WAS REMOVED WNL. D/C EDUCATION AND NEW MEDICATION EDUCAITION PROVIDED. PT VERABALIZED HER UNDERSTANDING. PT DENIED C/P, N/V OR SOB ON D/C.
== END 2020-02-11 17:23 | disposition home or self-care (01) | DRG 871 ==
LOC: ER 19:17 → MEDS 22:26 → ICUE 22:26 → MEDS 23:23 → ICUE 02-08 02:21 → PCU 02-09 15:40
PROVIDERS: Emergency Medicine; Internal Medicine Critical Care Medicine; Nurse Practitioner Acute Care; ADMIT Family Medicine
PROC: 05HM33Z Insertion of Infusion Device into Right Internal Jugular Vein, Percutaneous Approach (ICD-10-PCS; principal; 2020-02-08)
PROC: 3E043XZ Introduction of Vasopressor into Central Vein, Percutaneous Approach (ICD-10-PCS; 2020-02-08)
DX: A41.81 Sepsis due to Enterococcus (principal); R65.21 Severe sepsis with septic shock; N39.0 Urinary tract infection, site not specified; N17.9 Acute kidney failure, unspecified; Z68.44 Body mass index [BMI] 60.0-69.9, adult; W18.11XA Fall from or off toilet without subsequent striking against object, initial encounter; J44.9 Chronic obstructive pulmonary disease, unspecified; E78.5 Hyperlipidemia, unspecified; I10 Essential (primary) hypertension; M19.90 Unspecified osteoarthritis, unspecified site; L40.9 Psoriasis, unspecified; Z79.82 Long term (current) use of aspirin; E87.6 Hypokalemia; I48.91 Unspecified atrial fibrillation; Y92.9 Unspecified place or not applicable; G89.29 Other chronic pain; E66.01 Morbid (severe) obesity due to excess calories
CPT/HCPCS: 36415; 36556; 51702; 71045; 74176; 76770; 80048; 80053; 81001; 82947; 83036; 83605; 83735; 84100; 84484; 85025; 87040; 87077; 87086; 87186; 93005; 93010; 94660; 94762; 96361; 96365; 97112; 97163; 97530; 99285-25; A9270; A9270-GY; C1751; J0696; J1644; J1956; J2543; J7030; J7040; J7060; P9612

== ENCOUNTER 2022-01-16 00:49 | Inpatient (IN) | payer OTHER ==
[~2022-01-16] VITALS: Ht 152.4 cm; Wt 111.0 kg
[~2022-01-16 00:49] MED LIST changes: +CELEBREX200 MG PO; +CIPR500 PO; +Cetirizine HCl10 MG PO; +FUROSEMIDE40 MG PO; +HYDROCODONE-AC1 EAC1 PO; +METO100ER PO; +MONT10T PO; +NEURONTIN300 MG PO
[2022-01-16 01:28] LABS: BASOPHILS ABSOLUTE AUTO 0.06 K/mm3 (0.00-0.23); BASOPHILS PERCENT AUTO 0 % (0-2); EOSINOPHILS ABSOLUTE AUTO 0.05 K/mm3 (0.00-0.68); EOSINOPHILS PERCENT AUTO 0 % (0-6); Hematocrit 42.2 % (33.0-51.0); Hemoglobin 13.3 g/dL (11.5-16.0); IMMATURE GRAN ABSOLUTE AUTO 0.24 K/mm3 (0.00-0.10); IMMATURE GRAN PERCENT AUTO 1 % (0-1); LYMPHOCYTES ABSOLUTE AUTO 0.87 K/mm3 (0.84-5.20); LYMPHOCYTES PERCENT AUTO 4 % (21-46); MONOCYTES ABSOLUTE AUTO 1.33 K/mm3 (0.16-1.47); MONOCYTES PERCENT AUTO 7 % (4-13); Mean Corpuscular HGB 27.7 pg (26.0-34.0); Mean Corpuscular HGB Conc 31.5 g/dL (31.5-36.5); Mean Corpuscular Volume 88 fL (80-100); Mean Platelet Volume 9.2 fL (9.1-12.4); NEUTROPHILS ABSOLUTE AUTO 17.99 K/mm3 (1.96-9.15); NEUTROPHILS PERCENT AUTO 88 % (41-73); Platelet Count 226 K/mm3 (150-400); RDW Coefficient Variation 14.6 % (11.7-14.2); RDW Standard Deviation 46.5 fL (35.1-46.3); Red Blood Cell Count 4.81 M/mm3 (3.80-5.20); White Blood Cell Count 20.54 K/mm3 (4.00-11.30)
[2022-01-16 01:47] LABS: Albumin/Globulin Ratio 0.6 (0.8-1.8); Bilirubin, Total 0.5 mg/dL (0.1-1.0); Bun/Creatinine Ratio 12.7 (12.0-20.0); Calcium, Blood 9.7 mg/dL (8.5-10.1); Creatinine, Blood 1.1 mg/dL (0.40-1.00); Globulin, Blood 4.9 g/dL (2.2-4.0); Potassium, Blood 4.5 mmol/L (3.5-5.5); Total Protein, Blood 7.9 g/dL (6.4-8.2)
[2022-01-16 02:08] LABS: Source, Urine Straight Cath
[2022-01-16 02:15] LABS: Appearance, Urine Hazy (Clear); Bilirubin, Urine Neg (Neg); Blood, Urine 5+ (Neg); Color, Urine Yellow (P-Yellow); Glucose Qualitative, Urine Neg (Neg); Ketones, Urine Neg (Neg); Leukocyte Esterase, Urine 3+ (Neg); Nitrite, Urine Neg (Neg); Protein, Urine 2+ (Neg); Specific Gravity, Urine 1.005 (1.003-1.022); Urobilinogen, Urine 1+ (Normal)
[2022-01-16 02:25] LABS: Bacteria Many /hpf; Squamous Epithelial Cells Few /hpf (Few); White Blood Cells, Urine 50-100 /hpf (0-5)
[2022-01-16 04:52] LABS: BASOPHILS ABSOLUTE AUTO 0.03 K/mm3 (0.00-0.23); BASOPHILS PERCENT AUTO 0 % (0-2); EOSINOPHILS PERCENT AUTO 0 % (0-6); Hematocrit 31.7 % (33.0-51.0); Hemoglobin 10.5 g/dL (11.5-16.0); IMMATURE GRAN PERCENT AUTO 1 % (0-1); LYMPHOCYTES PERCENT AUTO 3 % (21-46); MONOCYTES ABSOLUTE AUTO 1.36 K/mm3 (0.16-1.47); MONOCYTES PERCENT AUTO 8 % (4-13); Mean Corpuscular HGB 28.6 pg (26.0-34.0); Mean Corpuscular HGB Conc 33.1 g/dL (31.5-36.5); Mean Corpuscular Volume 86 fL (80-100); Mean Platelet Volume 9.2 fL (9.1-12.4); NEUTROPHILS ABSOLUTE AUTO 14.38 K/mm3 (1.96-9.15); NEUTROPHILS PERCENT AUTO 88 % (41-73); Platelet Count 185 K/mm3 (150-400); RDW Coefficient Variation 14.4 % (11.7-14.2); RDW Standard Deviation 45.4 fL (35.1-46.3); Red Blood Cell Count 3.67 M/mm3 (3.80-5.20); White Blood Cell Count 16.27 K/mm3 (4.00-11.30)
[2022-01-16 05:12] LABS: Albumin, Blood 2.5 g/dL (3.4-5.0); Albumin/Globulin Ratio 0.6 (0.8-1.8); Bilirubin, Total 0.3 mg/dL (0.1-1.0); Bun/Creatinine Ratio 13.6 (12.0-20.0); Calcium, Blood 8.4 mg/dL (8.5-10.1); Creatinine, Blood 1.03 mg/dL (0.40-1.00); Globulin, Blood 3.9 g/dL (2.2-4.0); Potassium, Blood 3.9 mmol/L (3.5-5.5); Total Protein, Blood 6.4 g/dL (6.4-8.2)
--- NOTE | 2022-01-16 06:21 | NUR ---
SHIFT SUMMARY ASSUMED CARE OF PT AT 0500. PT IS A/OX4. HEART SOUNDS IRREGULAR, TELE SHOWS AFIB. LUNG SOUDNS CLEAR. PT REQUESTING OXYGEN DUE TO WANTING SLEEP BECUASE SHE DOES NOT HAVE HER CPAP; WILL PASS ON TO DAYSHIFT SHE WILL NEED AN ORDER FOR CPAP. PT WAS CONTIENT OF URINE IN A BEDPAN. PT HAS REDNESS UNDER HER FOLDS AND ON HER COCCYX, PICTURES IN CHART. PT HAS AN ABRASION ON HER L KNEE. PT C/O PAIN IN HER WHOLE R LEG, MEDICATED PER EMAR AND HEAT PACK APPLIED. PT NPO FOR POSSIBLE PROCEDURE TODAY.
[2022-01-16 10:59] LABS: Influenza A, PCR NEGATIVE (NEGATIVE); Influenza B, PCR NEGATIVE (NEGATIVE); Resp Syncytial Virus, PCR NEGATIVE (NEGATIVE)
[2022-01-16 11:15] LABS: SARS-Cov-2 (COVID-19) PCR, MMC POSITIVE (NEGATIVE)
--- NOTE | 2022-01-16 13:32 | NUR ---
Assumed care of patient at approx 1145. Pt alert, oriented x4, anxious but cooperative with care. Pt reporting right leg pain, medicated per emar. Pt on BR. Pt remains NPO for procedure this afternoon/evening. Pt denies chest pain, sob, nasuea, dizziness. Pt reports numbness/tingling to ble, baseline. Ls clear dim in bases, spo2 >90% on ra, resp rate wnl, breathing even and unlabored. Pt tele afib 60-80's, bp stable. Abd soft nontender, pt reports frequently passing gas. Pt having frequent urination on bedpan. Other vss. No s/sx of distress noted. Will continue to monitor.
[2022-01-16 18:33] LABS: Source, Urine Nephrostomy
[2022-01-16 18:48] LABS: Appearance, Urine Bloody (Clear); Bilirubin, Urine Neg (Neg); Blood, Urine 4+ (Neg); Color, Urine Red (P-Yellow); Glucose Qualitative, Urine Neg (Neg); Ketones, Urine Neg (Neg); Leukocyte Esterase, Urine Neg (Neg); Nitrite, Urine Neg (Neg); Protein, Urine 4+ (Neg); Urobilinogen, Urine NORM (Normal)
--- NOTE | 2022-01-16 18:54 | NUR ---
Pt to yard laborer this afternoon, back to room with left nephrostomy. Dressing c/d/i, drainage in tube red. Vss. No other acute changes. Will continue to monitor.
[2022-01-16 19:22] LABS: Bacteria Rare /hpf; Red Blood Cells, Urine TNTC /hpf (0-2); Squamous Epithelial Cells Not Seen /hpf (Few); White Blood Cells, Urine 0-2 /hpf (0-5)
[2022-01-17 04:05] LABS: BASOPHILS ABSOLUTE AUTO 0.02 K/mm3 (0.00-0.23); BASOPHILS PERCENT AUTO 0 % (0-2); EOSINOPHILS PERCENT AUTO 0 % (0-6); Hematocrit 36.8 % (33.0-51.0); Hemoglobin 11.7 g/dL (11.5-16.0); IMMATURE GRAN ABSOLUTE AUTO 0.02 K/mm3 (0.00-0.10); IMMATURE GRAN PERCENT AUTO 0 % (0-1); LYMPHOCYTES ABSOLUTE AUTO 1.13 K/mm3 (0.84-5.20); LYMPHOCYTES PERCENT AUTO 15 % (21-46); MONOCYTES PERCENT AUTO 10 % (4-13); Mean Corpuscular HGB 27.9 pg (26.0-34.0); Mean Corpuscular HGB Conc 31.8 g/dL (31.5-36.5); Mean Corpuscular Volume 88 fL (80-100); Mean Platelet Volume 9.6 fL (9.1-12.4); NEUTROPHILS ABSOLUTE AUTO 5.48 K/mm3 (1.96-9.15); NEUTROPHILS PERCENT AUTO 75 % (41-73); Platelet Count 164 K/mm3 (150-400); RDW Coefficient Variation 14.7 % (11.7-14.2); RDW Standard Deviation 47.5 fL (35.1-46.3); White Blood Cell Count 7.35 K/mm3 (4.00-11.30)
[2022-01-17 04:32] LABS: Albumin, Blood 2.4 g/dL (3.4-5.0); Albumin/Globulin Ratio 0.6 (0.8-1.8); Bilirubin, Total 0.2 mg/dL (0.1-1.0); Bun/Creatinine Ratio 13.5 (12.0-20.0); Calcium, Blood 8.7 mg/dL (8.5-10.1); Creatinine, Blood 0.96 mg/dL (0.40-1.00); Potassium, Blood 3.7 mmol/L (3.5-5.5); Total Protein, Blood 6.4 g/dL (6.4-8.2)
--- NOTE | 2022-01-17 05:59 | NUR ---
SHIFT SUMMARY ASSUMED CARE OF PT AT 1900. PT IS A/OX4. HEART SOUNDS IRREGULAR. LUNG SOUNDS CLEAR. PT URINE WAS SHONDA RED, DISCUSSED WITH CHARGE NURSE. NEPHROSTOMY TUBE WAS ALSO DRAINING SHONDA RED BLOOD. DRESSING C/D/I, PT ONLY COMPLAINT WAS PAIN IN HER LEG. PT WAS ABLE TO TRANSFER WITH 1-2P ASSIST TO [facility] BUT SAID SHE WAS TIRED AND REFUSED TO GET UP THE REST OF THE NIGHT AND USED THE BEDPAN. PT WAS EDUCATED ABOUT HOW SHE WILL HAVE TO GO BACK HOEM AND DO THIS HERESELF AND NEEDED TO START DOING THINGS ON HER OWN AGAIN.
--- NOTE | 2022-01-17 18:05 | NUR ---
SHIFT NOTE PT A/O X3. REMAINS ON RA T/O THE DAY, PT ASKED TO GO ON BIPAP TO SLEEP BUT QUICKLY DEMANDED IT BE REMOVED SHE HAD DECIDED NOT TO NAP. PT WAS A 2 PERSON SBA TO BS TODAY, HR NOTED TO BECOME VERY ELEVATED WHILE AMBULATING BUT DOES QUCIKLY RETURN TO HER BASELINE OF 90s-110s. VSS. PT DID WORK WITH PHYSICAL THERAPY TODAY. SEWELL CATH WAS PLACED TODAY TO KEEP ACCURATE OUTPUT, SEWELL DRAINING WELL TO GRAVITY WITH TEA COLORED OUTPUT. NEPHROSTOMY DRESSING CLEAN AND INTACT, DRAINING WELL T/O THE DAY.
--- NOTE | 2022-01-18 06:03 | NUR ---
SHIFT SUMMARY ASSUMED CARE OF PT AT 1900. PT IS A/OX4. HEART SOUNDS IRREGULAR, AFIB. LUNG SOUNDS SIMINISHED AT THE BASES. URINE IN CATHETER WAS CLEAR AND YELLOW. NEPHROSTOMY IS YELLOW WITH SEDIMENT. PT HAD NO COMPLAINTS DURING THE NIGHT UNTIL THIS AM WHEN SHE AWOKE AND HER HR JUMPED TO 200. PT WAS ASYMTOMATIC AND WAS ONLY RESTING IN BED. HR WENT BACK DOWN TO 130 BUT LOPRESSOR WAS GIVEN AND RATE IS BACK INTO THE 100S. PT WOULD ALSO DESATURATE TO 79% DURING THE NIGHT WHILE IN DEEP SLEEP. RT CONSULTED AND SAID PT MIGHT HAVE A CENTRAL SLEEP APNEA AND NEEDED A DIFFERENT MASK BUT CANNOT TOUCH PT HOME CPAP PER POLICY. PT WOULD LI BACK UP TO 95% WHEN AWOKEN AND WAS ASYMPTOMTIC.
[2022-01-18] MEDS ORDERED: ALBU90OI INH (09:42)
[2022-01-18] MEDS ORDERED: METO25 PO (09:42)
[2022-01-18] MEDS ORDERED: Triamcinolone A15 G2 TOP (09:43)
--- NOTE | 2022-01-18 09:44 | NUR ---
MEDICATION LIST UPDATED PER RECRODS FROM [facility] PT REPORTS NON-COMPLIANCE WITH LASIX STS THAT SHE HAS NOT BEEN TAKING TI AT HOME, IT IS CONFIRMED THAT SHE HAS NOT FILLED LASIX THIS YEAR PER CLAIM HISTORY
[2022-01-18] MEDS ORDERED: GABA300 PO (13:07)
[2022-01-18] MEDS ORDERED: HYDR1TAB94 PO (13:08)
[2022-01-18] MEDS ORDERED: LACT PO (14:57)
[2022-01-18] MEDS ORDERED: LEVOFLOXACIN750 M3 PO (14:57)
--- NOTE | 2022-01-18 16:40 | NUR ---
PT D/C TO HOME, IV REMOVED AND PRESURE DRESSED. PT EXPRESSED UNDERSTANDING OF D/C TEACHING. NEPHROSTOMY TUBE DRESSING CHANGED. FAMILY EDUCATED HOW TO MANAGE NEPRHOSTOMY
== END 2022-01-18 16:15 | disposition home or self-care (01) | DRG 871 ==
LOC: ER 00:49 → PCU 03:58
PROVIDERS: Emergency Medicine; Family Medicine; Radiology Diagnostic Radiology; Student in an Organized Health Care Education/Training Program; ADMIT Family Medicine
PROC: 3E03329 Introduction of Other Anti-infective into Peripheral Vein, Percutaneous Approach (ICD-10-PCS; principal; 2022-01-16)
PROC: 0T9130Z Drainage of Left Kidney with Drainage Device, Percutaneous Approach (ICD-10-PCS; 2022-01-18)
DX: A41.51 Sepsis due to Escherichia coli [E. coli] (principal); G92.8 Other toxic encephalopathy; U07.1 COVID-19; Z68.43 Body mass index [BMI] 50.0-59.9, adult; N13.6 Pyonephrosis; E87.2 Acidosis; R65.20 Severe sepsis without septic shock; I48.91 Unspecified atrial fibrillation; I10 Essential (primary) hypertension; K21.9 Gastro-esophageal reflux disease without esophagitis; E78.5 Hyperlipidemia, unspecified; J44.9 Chronic obstructive pulmonary disease, unspecified; E66.9 Obesity, unspecified; Z90.710 Acquired absence of both cervix and uterus; Z98.890 Other specified postprocedural states; Z98.84 Bariatric surgery status; Z99.89 Dependence on other enabling machines and devices; Z91.048 Other nonmedicinal substance allergy status; Z91.041 Radiographic dye allergy status; Z79.82 Long term (current) use of aspirin; Z79.899 Other long term (current) drug therapy; W06.XXXA Fall from bed, initial encounter
CPT/HCPCS: 0241U; 36415; 50432; 70450; 71045; 72125; 72192; 74176; 76937; 80053; 81001; 83605; 83880; 84484; 85025; 87040; 87077; 87086; 87186; 93005; 93010; 94660; 94762; 96365; 96366; 96375; 97110; 97162; 97166; 97530; 99152; 99153; 99285-25; A9270; C1729; C1769; J0696; J1160; J1644; J2250; J3010; J7030; J7040; Q9967

== ENCOUNTER → 2022-02-25 | Outpatient (CLI) | payer OTHER ==
[~2022-02-25] MED LIST changes: +ALBU90OI INH; +GABA300 PO; +HYDR1TAB94 PO; +LACT PO; +LEVOFLOXACIN750 M3 PO; +METO25 PO; +Triamcinolone A15 G2 TOP
[2022-02-25 13:04] LABS: BASOPHILS ABSOLUTE AUTO 0.05 K/mm3 (0.00-0.23); BASOPHILS PERCENT AUTO 1 % (0-2); EOSINOPHILS ABSOLUTE AUTO 0.12 K/mm3 (0.00-0.68); EOSINOPHILS PERCENT AUTO 1 % (0-6); Hemoglobin 11.1 g/dL (11.5-16.0); IMMATURE GRAN ABSOLUTE AUTO 0.06 K/mm3 (0.00-0.10); IMMATURE GRAN PERCENT AUTO 1 % (0-1); LYMPHOCYTES ABSOLUTE AUTO 1.42 K/mm3 (0.84-5.20); LYMPHOCYTES PERCENT AUTO 13 % (21-46); MONOCYTES PERCENT AUTO 5 % (4-13); Mean Corpuscular HGB 29.1 pg (26.0-34.0); Mean Corpuscular HGB Conc 31.7 g/dL (31.5-36.5); Mean Corpuscular Volume 92 fL (80-100); Mean Platelet Volume 8.9 fL (9.1-12.4); NEUTROPHILS ABSOLUTE AUTO 8.81 K/mm3 (1.96-9.15); NEUTROPHILS PERCENT AUTO 80 % (41-73); Platelet Count 297 K/mm3 (150-400); RDW Coefficient Variation 17.8 % (11.7-14.2); RDW Standard Deviation 59.1 fL (35.1-46.3); Red Blood Cell Count 3.81 M/mm3 (3.80-5.20); White Blood Cell Count 11.06 K/mm3 (4.00-11.30)
[2022-02-25 13:14] LABS: Bun/Creatinine Ratio 6.5 (12.0-20.0); Calcium, Blood 9.1 mg/dL (8.5-10.1); Creatinine, Blood 0.93 mg/dL (0.40-1.00); Potassium, Blood 2.6 mmol/L (3.5-5.5)
== END | disposition home or self-care (01) ==
LOC: LAB 13:00 → LAB SHORT 13:00
PROVIDERS: Family Medicine
DX: R06.02 Shortness of breath (principal)
CPT/HCPCS: 80048; 83880; 84484; 85025

== ENCOUNTER 2023-03-14 16:00 | Emergency (ER) | payer OTHER ==
[~2023-03-14] VITALS: Ht 152.4 cm; Wt 113.4 kg
[2023-03-14 16:24] LABS: BASOPHILS ABSOLUTE AUTO 0.04 K/mm3 (0.00-0.23); BASOPHILS PERCENT AUTO 0 % (0-2); EOSINOPHILS ABSOLUTE AUTO 0.28 K/mm3 (0.00-0.68); EOSINOPHILS PERCENT AUTO 3 % (0-6); Hematocrit 36.1 % (33.0-51.0); IMMATURE GRAN ABSOLUTE AUTO 0.04 K/mm3 (0.00-0.10); IMMATURE GRAN PERCENT AUTO 0 % (0-1); LYMPHOCYTES ABSOLUTE AUTO 2.07 K/mm3 (0.84-5.20); LYMPHOCYTES PERCENT AUTO 20 % (21-46); MONOCYTES ABSOLUTE AUTO 0.83 K/mm3 (0.16-1.47); MONOCYTES PERCENT AUTO 8 % (4-13); Mean Corpuscular HGB 30.1 pg (26.0-34.0); Mean Corpuscular HGB Conc 33.2 g/dL (31.5-36.5); Mean Corpuscular Volume 91 fL (80-100); Mean Platelet Volume 9.3 fL (9.1-12.4); NEUTROPHILS ABSOLUTE AUTO 7.29 K/mm3 (1.96-9.15); NEUTROPHILS PERCENT AUTO 69 % (41-73); Platelet Count 259 K/mm3 (150-400); RDW Coefficient Variation 14.2 % (11.7-14.2); Red Blood Cell Count 3.99 M/mm3 (3.80-5.20); White Blood Cell Count 10.55 K/mm3 (4.00-11.30)
[2023-03-14 16:42] LABS: Albumin, Blood 2.1 g/dL (3.4-5.0); Albumin/Globulin Ratio 0.4 (0.8-1.8); Bilirubin, Total 0.3 mg/dL (0.1-1.0); Bun/Creatinine Ratio 10.5 (12.0-20.0); Creatinine, Blood 1.24 mg/dL (0.40-1.00); Globulin, Blood 4.7 g/dL (2.2-4.0); Total Protein, Blood 6.8 g/dL (6.4-8.2)
[2023-03-14 16:45] VITALS: BP 107/65
[2023-03-14] MEDS ORDERED: [UNRECOGNIZED DRUG - OTHER] MC (17:14)
== END 2023-03-14 17:32 | disposition home or self-care (01) ==
LOC: ER 16:00
PROVIDERS: Emergency Medicine
DX: I95.9 Hypotension, unspecified (principal); Z77.22 Contact with and (suspected) exposure to environmental tobacco smoke (acute) (chronic); Z88.8 Allergy status to other drugs, medicaments and biological substances; Z79.2 Long term (current) use of antibiotics; Z79.891 Long term (current) use of opiate analgesic; Z79.899 Other long term (current) drug therapy; I10 Essential (primary) hypertension; E78.5 Hyperlipidemia, unspecified; J44.9 Chronic obstructive pulmonary disease, unspecified; I48.91 Unspecified atrial fibrillation; Z79.01 Long term (current) use of anticoagulants
CPT/HCPCS: 80053; 84484; 85025; 93005; 93010; 99284-25; J7030

== ENCOUNTER 2023-06-22 01:57 | Inpatient (IN) | payer OTHER ==
[~2023-06-22] VITALS: Ht 152.4 cm; Wt 68.0 kg
[2023-06-22] VITALS (15 sets, daily range): BP systolic 93–130; BP diastolic 59–94
[~2023-06-22 01:57] MED LIST changes: -GABA300 PO; +GABA600 PO; +[UNRECOGNIZED DRUG - OTHER] MC
[2023-06-22 02:48] LABS: Hematocrit 36.7 % (33.0-51.0); Hemoglobin 12.8 g/dL (11.5-16.0); Mean Corpuscular HGB 30.3 pg (26.0-34.0); Mean Corpuscular HGB Conc 34.9 g/dL (31.5-36.5); Mean Corpuscular Volume 87 fL (80-100); Mean Platelet Volume 9.5 fL (9.1-12.4); Platelet Count 337 K/mm3 (150-400); RDW Coefficient Variation 14.1 % (11.7-14.2); RDW Standard Deviation 44.3 fL (35.1-46.3); Red Blood Cell Count 4.23 M/mm3 (3.80-5.20); White Blood Cell Count 32.71 K/mm3 (4.00-11.30)
[2023-06-22 02:48] LABS: Source, Urine Fem Cath
[2023-06-22 02:50] LABS: Bilirubin, Urine Neg (Neg); Blood, Urine 3+ (Neg); Glucose Qualitative, Urine Neg (Neg); Ketones, Urine Neg (Neg); Leukocyte Esterase, Urine 3+ (Neg); Nitrite, Urine Neg (Neg); Protein, Urine 1+ (Neg); Urobilinogen, Urine NORM (Normal)
[2023-06-22 02:57] LABS: Appearance, Urine Cloudy (Clear); Color, Urine Yellow (P-Yellow)
[2023-06-22 02:58] LABS: Amorphous Mod (0-Heavy); Bacteria Many /hpf; Red Blood Cells, Urine 0-2 /hpf (0-2); Squamous Epithelial Cells Few /hpf (Few); White Blood Cells, Urine 25-50 /hpf (0-5)
[2023-06-22 03:06] LABS: Albumin, Blood 2.1 g/dL (3.4-5.0); Albumin/Globulin Ratio 0.4 (0.8-1.8); Bun/Creatinine Ratio 15.2 (12.0-20.0); Calcium, Blood 8.9 mg/dL (8.5-10.1); Creatinine, Blood 1.32 mg/dL (0.40-1.00); Globulin, Blood 5.1 g/dL (2.2-4.0); Potassium, Blood 2.4 mmol/L (3.5-5.5); Total Protein, Blood 7.2 g/dL (6.4-8.2)
[2023-06-22 03:13] LABS: BAND PERCENT MAN 6 % (0-8); BASOPHILS PERCENT MAN 0 % (0-2); EOSINOPHILS PERCENT MAN 0 % (0-6); LYMPHOCYTES ABSOLUTE MAN 2.61 K/mm3 (0.84-5.20); LYMPHOCYTES PERCENT MAN 8 % (21-46); MONOCYTES ABSOLUTE MAN 0.98 K/mm3 (0.16-1.47); MONOCYTES PERCENT MAN 3 % (4-13); NEUTROPHILS ABSOLUTE MAN 29.11 K/mm3 (1.96-9.15); SEG NEUTROPHILS PERCENT MAN 83 % (41-73); TOTAL CELLS COUNTED 100
[2023-06-22 03:14] LABS: Magnesium, Blood 1.5 mg/dL (1.6-2.4)
[2023-06-22] MEDS ORDERED: MOBIC15 MG PO (04:40)
[2023-06-22] MEDS ORDERED: CYMBALTA30 M2 PO (04:40)
[2023-06-22] MEDS ORDERED: FUROSEMIDE40 MG PO (04:40)
--- NOTE | 2023-06-22 08:35 | NUR ---
ARRIVAL TO ICU FROM ER PT ARRIVES FROM ER FOR UTI/SEPSIS AT 0648. PT ALERT TO SELF, KNOWS SHE IS AT HOSPITAL, UNSURE OF TOWN OR DATE. RECOGNIZES SO. FOLLOWS SIMPLE COMMANDS. AFIB ON MONITOR, RATE 110-140'S. INTERMITTANT 4-6 BEATS OF VTACH AT BEGINNING OF SHIFT, DECREASED IN FREQUENCY. BP STABLE. LUNGS DIM IN BASES, O2 SATS >95% ON RA. ABD ROUND, SOFT, NON TENDER. BT X 4. ATTENDS IN PLACE FOR INCONTINENCE. 1+ EDEMA TO BLE. IVF, KCL AND REDESIVER INFUSING. SO UPDATED. WILL CONTINUE TO MONITOR.
--- NOTE | 2023-06-22 11:16 | NUR ---
LICE TREATMENT TREATED FOR LICE c PERMETHRIN. COPIOUS AMOUNTS OF LICE. ATTEMPTED TO COMB LICE AND NITS. MANY REMAIN. FAMILY AT BEDSIDE.
[2023-06-22] MEDS ORDERED: METO50ER PO (13:51)
[2023-06-22 14:08] LABS: Albumin, Blood 1.9 g/dL (3.4-5.0); Anion Gap 5 mmol/L (6-16); Blood Urea Nitrogen 19 mg/dL (8-24); Bun/Creatinine Ratio 15.8 (12.0-20.0); CO2, Blood 33 mmol/L (21-32); Calcium, Blood 8.7 mg/dL (8.5-10.1); Chloride, Blood 102 mmol/L (98-108); Glomerular Filtration Rate 48 (60-); Glucose, Blood 137 mg/dL (70-99); Magnesium, Blood 2.3 mg/dL (1.6-2.4); Phosphorus, Blood 2.4 mg/dL (2.5-4.9); Potassium, Blood 3.4 mmol/L (3.5-5.5); Sodium, Blood 140 mmol/L (136-145)
--- NOTE | 2023-06-22 17:20 | NUR ---
SHIFT [facility] PT STATUS CHANGED TO MED c TELE THIS SHIFT. MENTATION IMPROVED. PT A&OX 3. FOLLOWS COMMANDS. USING CALL LIGHT APPROPRIATELY, ABLE TO MAKE NEEDS KNOWN. PT USING CPAP INTERMITTANTLY 12-20, 6L BLEED IN. LUNGS DIM IN BASES. OCCASIONAL COUGH. SPEAKING IN FULL SENTENCES. CONTINUES IN AFIB, RESTARTED HOME METOPROLOL 150 MG PO, 110-130'S. BP STABLE. PT HAD ONE EPISODE OF EMESIS DURING BATH, MEDICATED c ZOFRAN, RESOLVED. EATING DINNER AT THIS TIME. PUREWICK IN PLACE, ONE INCONTINENT VOID. IVF c KCL INFUSING. CALL LIGHT IN REACH. WILL CONTINUE TO MONITOR UNTIL REPORT TO ONCOMING NURSE.
--- NOTE | 2023-06-22 20:41 | NUR ---
PATIENT RESTING QUIETLY WATCHING TV. A&O X3. USING CALL LIGHT APPROPRIATELY. PLAN TO TRANSFER PATIENT TO ROOM 332. PATIENTS DAUGHTER DAWSON, AND GRANDDAUGHTER FAITH NOTIFIED OF TRANSFER.
--- NOTE | 2023-06-22 21:50 | NUR ---
PT IN HOUSE TRANSFER FROM ICU12 TO ROOM 332. PT TRANFERED TO ROOM WITH 2 PERSON ASSIST BY BED. 4 PERSON TRANSFER FROM PUC BED TO MED ROOM BED WITH LIFT SHEET. PT CAME TO ROOM WITH MEDS, CPAP, AND BINDER. PT IS IN MASK AND GOWN FOR ENHANCED ISOLATION PRECAUTIONS.
[2023-06-23 05:59] VITALS: BP 152/114
[2023-06-23 06:05] VITALS: BP 142/90
--- NOTE | 2023-06-23 06:27 | NUR ---
SHIFT SUMMARY PT IS ALERT AND ORIENTED X2/3 WITH CONFUSION. PT HAS A PRODUCTIVE COUGH WITH GREEN SPUTUM. PT ANXIOUS UPON ARRIVAL, ABLE TO REDIRECT. PT IS INCONTINENT OF BALDDER; PUREWICK IN PLACE AND ATTACHED TO SUCTION, ATTENDS IS CLEAN AND DRY IN PLACE. PT HAS REDDEMED AREAS UNDER BOTH BREASTS, FOLDS, AND GROIN- AREAS CLEANED AND DRIED WITH POWDER AND CREAM APPLIED. PT IS ON TELE AND CONTINUOUS PULSE OX. PT IS ABLE TO MAKE HER NEEDS KNOWN. PT REPOSITIONED. ATTENDS CHANGED NEEDED. BED IS LOCKED IN THE LOWEST POSITION WITH CALL LIGHT IN REACH.
[2023-06-23 07:12] VITALS: BP 150/68
[2023-06-23 08:32] LABS: BASOPHILS ABSOLUTE AUTO 0.08 K/mm3 (0.00-0.23); BASOPHILS PERCENT AUTO 0 % (0-2); EOSINOPHILS ABSOLUTE AUTO 0.21 K/mm3 (0.00-0.68); EOSINOPHILS PERCENT AUTO 1 % (0-6); Hematocrit 37.7 % (33.0-51.0); Hemoglobin 12.7 g/dL (11.5-16.0); IMMATURE GRAN PERCENT AUTO 1 % (0-1); LYMPHOCYTES ABSOLUTE AUTO 1.32 K/mm3 (0.84-5.20); LYMPHOCYTES PERCENT AUTO 4 % (21-46); MONOCYTES ABSOLUTE AUTO 1.01 K/mm3 (0.16-1.47); MONOCYTES PERCENT AUTO 3 % (4-13); Mean Corpuscular HGB 29.8 pg (26.0-34.0); Mean Corpuscular HGB Conc 33.7 g/dL (31.5-36.5); Mean Corpuscular Volume 89 fL (80-100); Mean Platelet Volume 9.9 fL (9.1-12.4); NEUTROPHILS ABSOLUTE AUTO 32.54 K/mm3 (1.96-9.15); NEUTROPHILS PERCENT AUTO 92 % (41-73); Platelet Count 394 K/mm3 (150-400); RDW Standard Deviation 48.1 fL (35.1-46.3); Red Blood Cell Count 4.26 M/mm3 (3.80-5.20); White Blood Cell Count 35.36 K/mm3 (4.00-11.30)
[2023-06-23 08:52] LABS: Albumin, Blood 1.9 g/dL (3.4-5.0); Anion Gap 6 mmol/L (6-16); Blood Urea Nitrogen 20 mg/dL (8-24); Bun/Creatinine Ratio 16.5 (12.0-20.0); CO2, Blood 30 mmol/L (21-32); Calcium, Blood 9.2 mg/dL (8.5-10.1); Chloride, Blood 107 mmol/L (98-108); Creatinine, Blood 1.21 mg/dL (0.40-1.00); Glomerular Filtration Rate 47 (60-); Glucose, Blood 117 mg/dL (70-99); Phosphorus, Blood 2.9 mg/dL (2.5-4.9); Potassium, Blood 3.5 mmol/L (3.5-5.5); Sodium, Blood 143 mmol/L (136-145)
--- NOTE | 2023-06-23 11:00 | NUR ---
MAYONNAISE APPLIED TO PATIENTS SCALP AND COVERED WITH A SHOWER CAP. ACTIVE, ADULT-SIZED LICE PRESENT ALL OVER SCALP WELL NITS. WILL CLEAN AND COMB HAIR TOWARDS THE END OF SHIFT.
--- NOTE | 2023-06-23 12:04 | NUR ---
BERTA WITH [facility] CALLED ABOUT PATIENT. HE STATED THAT THE PATIENT IS ALREADY BEING MANAGED BY SOMEONE IN [facility] AND HAS PAID CAREGIVERES. THEY HAVE CONCLUDED THAT PATIENT IS NONCOMPLIANT AND DOESN'T REALLY TAKE CARE OF HERSELF THAT WELL. PATIENT'S DAUGHTER JASEN ALSO CALLED FOR AN UPDATE AND MENTIONED THAT THE PATIENT HAS DEALT WITH LICE BEFORE AND "UNFORTUNATELY DOESN'T REALLY CARE FOR HERSELF."
[2023-06-23 15:26] VITALS: BP 132/85
--- NOTE | 2023-06-23 18:40 | NUR ---
SHIFT SUMMARY A&OX3-4, COOPERATIVE WITH CARE, ABLE TO FOLLOW SIMPLE CONVERSATION. DENIES CP/PRESSURE, HEADACHE, DIZZINESS, OR SOB. ON ROOM AIR DURING DAY AND CPAP WHEN SLEEPING. O2 SATS IN THE LOW 90'S T/O SHIFT. WHITE SPUTUM NOTED WITH COUGHING. COMPLAINED OF NAUSEA AND HAD A SMALL AMOUNT OF YELLOW EMESIS COME UP. DID NOT COMPLAIN OF PAIN DURING THIS SHIFT. TELE IN PLACE, NO EVENTS. PUREWICK IN PLACE. LBM UNKNOWN. REDNESS/OPEN SORES UNDER BREASTS AND PANNUS, MEDICATED WITH CREAM AND POWDER. ADULT LICE ACTIVE AND PRESENT ON PATIENT'S SCALP. MADERA APPLIED AT 1100. CHECKED AT 1700 AND BUGS WERE STILL MOVING AROUND. MORE MADERA APPLIED AND COVERED WITH A SHOWER CAP. PATIENT TALKED TO THE DR ABOUT GOING HOME TOMORROW. PT/OT WILL BE ORDERED WITH POTENTIAL DISCHARGE TOMORROW AFTERNOON. PATIENT IS CURRENTLY WATCHING V WITH HER . CALL LIGHT WITHIN REACH. MOVING AROUND, SO APPLIED
[2023-06-23 21:03] VITALS: BP 145/96
[2023-06-24 01:49] VITALS: BP 138/78
--- NOTE | 2023-06-24 04:27 | NUR ---
SHIFT SUMMARY PRIETO WAS ALERT AND ORIENTED X3-4 AT START OF SHIFT AND COOPERATIVE. NO ACUTE EVENTS THIS SHIFT. PT RECIEVED A BED BATH AND HAD THE MADERA WASHED FROM HER HAIR. MADERA REAPPLIED AT 0300 PER PT'S ORDERS. PT WORE HER BIPAP TONIGHT WITHOUT ISSUE AND MAINTAINED O2 SATS IN THE 90'S. SHE IS CURRENTLY RESTING IN BED WITH THE CALL LIGHT IN REACH.
[2023-06-24 06:19] LABS: BASOPHILS ABSOLUTE AUTO 0.03 K/mm3 (0.00-0.23); BASOPHILS PERCENT AUTO 0 % (0-2); EOSINOPHILS PERCENT AUTO 0 % (0-6); Hematocrit 36.3 % (33.0-51.0); Hemoglobin 11.7 g/dL (11.5-16.0); IMMATURE GRAN ABSOLUTE AUTO 0.11 K/mm3 (0.00-0.10); IMMATURE GRAN PERCENT AUTO 1 % (0-1); LYMPHOCYTES ABSOLUTE AUTO 1.68 K/mm3 (0.84-5.20); LYMPHOCYTES PERCENT AUTO 7 % (21-46); MONOCYTES ABSOLUTE AUTO 1.06 K/mm3 (0.16-1.47); MONOCYTES PERCENT AUTO 5 % (4-13); Mean Corpuscular HGB 29.6 pg (26.0-34.0); Mean Corpuscular HGB Conc 32.2 g/dL (31.5-36.5); Mean Corpuscular Volume 92 fL (80-100); NEUTROPHILS ABSOLUTE AUTO 19.93 K/mm3 (1.96-9.15); NEUTROPHILS PERCENT AUTO 87 % (41-73); Platelet Count 374 K/mm3 (150-400); RDW Coefficient Variation 15.7 % (11.7-14.2); RDW Standard Deviation 52.9 fL (35.1-46.3); Red Blood Cell Count 3.95 M/mm3 (3.80-5.20); White Blood Cell Count 22.81 K/mm3 (4.00-11.30)
[2023-06-24 06:52] LABS: Calcium, Blood 9.7 mg/dL (8.5-10.1); Creatinine, Blood 1.15 mg/dL (0.40-1.00); Potassium, Blood 4.5 mmol/L (3.5-5.5)
[2023-06-24 07:57] VITALS: BP 138/97
--- NOTE | 2023-06-24 10:50 | NUR ---
PATIENT'S DAUGHTER JASEN CALLED TO INQUIRE ABOUT THE PATIENT. SHE STATED THAT THE PATIENT WILL BE COMPLIANT IN THE HOSPITAL AND "BE THE COMPLETE OPPOSITE" WHEN SHE IS AT HOME. STATED PT'S MENTIONED THAT SHE VOMITTED "ALL DAY YESTERDAY." INFORMED HER THAT THE PATIENT HAD ONE INCIDENCE WHERE SHE VOMITTED AFTER PICKING AT HER LUNCH. JASEN STATED THAT HER MOM BARELY EATS ANYTHING AT HOME AND WILL PROBABLY THROW UP ANYTHING THE HOSPITAL FEEDS HER. STATES SHE ONLY HAS COFFEE, TOAST, AND SOME SODA AT HOME.
[2023-06-24 15:50] VITALS: BP 127/91
--- NOTE | 2023-06-24 16:11 | NUR ---
SHIFT SUMMARY A&0X3-4, COOPERATIVE WITH CARE. DENIES CP/PRESSURE, HEADACHE, DIZZINESS, OR SOB. DENIES ANY PAIN. OCCASIONAL PRODUCTIVE COUGH. POOR APPETITE, REFUSED LUNCH. EDUCATED PT ABOUT THE IMPRTANCE OF NUTRITION, BUT PT STILL REFUSED. HAIR CLEANSED 2X TODAY. PERMETHRIN CREAM ORDERED FOR TREATMENT. PT CONTINUES TO HAVE REDNESS AND OPEN AREAS UNDER BREASTS AND PANNUS, MEDICATED WITH CREAM AND POWDER. LARGE BM TODAY. PUREWICK IN PLACE - SMALL AMOUNT OF DARK YELLOW OUTPUT T/O SHIFT. PATIENT WAS ABLE TO TRANSFER FROM BED TO CHAIR AND BACK A SBA WITH FWW. NO ACUTE EVENTS THIS SHIFT. ROOM AIR DURING THE DAY, CPAP WHILE SLEEPING. ON TELE RUNNING AFIB IN THE 90'S. CONTINUOUS BIOX SHOWING SATS IN THE LOW TO MID 90'S. CURRENTLY RESTING IN BED. AT BEDSIDE. CALL LIGHT WITHIN REACH.
[2023-06-24 20:19] VITALS: BP 120/54
[2023-06-25] MEDS ORDERED: BENZONATATE100 MG PO (04:16)
[2023-06-25 04:26] VITALS: BP 120/63
--- NOTE | 2023-06-25 04:41 | NUR ---
SHIFT SUMMARY PRIETO WAS ALERT AND FULLY ORIENTED AT THE START OF THE SHIFT. SHE WAS SLEEPIER THAN YESTERDAY AND SLEPT THROUGH MOST OF THE SHIFT. SHE WORE HER CPAP THROUGH THE NIGHT AND MAINTAINED SATURATIONS IN THE 90'S WITH A COUPLE OF DIPS INTO THE 80'S FOR BRIEF PERIODS. THERE WERE NO ACUTE EVENTS TONIGHT, AND PT HAS NO COMPLAINTS. NIX TREATMENT ADMINISTERED. PT RESTING IN BED IN A LOW POSITION WITH THE CALL LIGHT IN REACH.
[2023-06-25 05:27] LABS: BASOPHILS ABSOLUTE AUTO 0.02 K/mm3 (0.00-0.23); BASOPHILS PERCENT AUTO 0 % (0-2); EOSINOPHILS ABSOLUTE AUTO 0.01 K/mm3 (0.00-0.68); EOSINOPHILS PERCENT AUTO 0 % (0-6); Hematocrit 32.2 % (33.0-51.0); Hemoglobin 10.5 g/dL (11.5-16.0); IMMATURE GRAN ABSOLUTE AUTO 0.14 K/mm3 (0.00-0.10); IMMATURE GRAN PERCENT AUTO 1 % (0-1); LYMPHOCYTES ABSOLUTE AUTO 2.05 K/mm3 (0.84-5.20); LYMPHOCYTES PERCENT AUTO 13 % (21-46); MONOCYTES ABSOLUTE AUTO 0.79 K/mm3 (0.16-1.47); MONOCYTES PERCENT AUTO 5 % (4-13); Mean Corpuscular HGB Conc 32.6 g/dL (31.5-36.5); Mean Corpuscular Volume 92 fL (80-100); Mean Platelet Volume 9.4 fL (9.1-12.4); NEUTROPHILS ABSOLUTE AUTO 13.21 K/mm3 (1.96-9.15); NEUTROPHILS PERCENT AUTO 81 % (41-73); Platelet Count 306 K/mm3 (150-400); RDW Coefficient Variation 15.9 % (11.7-14.2); White Blood Cell Count 16.22 K/mm3 (4.00-11.30)
[2023-06-25 06:04] LABS: Albumin, Blood 1.9 g/dL (3.4-5.0); Anion Gap 4 mmol/L (6-16); Blood Urea Nitrogen 22 mg/dL (8-24); Bun/Creatinine Ratio 20.2 (12.0-20.0); CO2, Blood 27 mmol/L (21-32); Calcium, Blood 9.5 mg/dL (8.5-10.1); Chloride, Blood 118 mmol/L (98-108); Creatinine, Blood 1.09 mg/dL (0.40-1.00); Glomerular Filtration Rate 53 (60-); Glucose, Blood 79 mg/dL (70-99); Phosphorus, Blood 2.7 mg/dL (2.5-4.9); Potassium, Blood 4.3 mmol/L (3.5-5.5); Sodium, Blood 149 mmol/L (136-145)
[2023-06-25 07:44] VITALS: BP 113/64
[2023-06-25 16:02] VITALS: BP 132/67
[2023-06-25 19:54] VITALS: BP 120/71
--- NOTE | 2023-06-26 04:20 | NUR ---
SHIFT SUMMARY PATIENT IS A/Ox3-4, PLEASANT AFFECT. NO C/O PAIN NOR DISCOMFORT. VSS, SpO2 98% ON RA. COMPLIANT WITH CPAP USE. NO COUGH THIS SHIFT. CONTINUES ON TELE, AFIB IN 80s. PUREWICK IN PLACE, DARK ALYSA URINE. PATIENT ASLEEP THROUGHOUT MOST OF SHIFT. NO ACUTE CHANGES NOTED OVERNIGHT. BED LOCKED AND IN LOWEST POSITION, CALL LIGHT WITHIN REACH.
[2023-06-26 04:53] VITALS: BP 127/77
[2023-06-26 06:17] LABS: BASOPHILS ABSOLUTE AUTO 0.04 K/mm3 (0.00-0.23); BASOPHILS PERCENT AUTO 0 % (0-2); EOSINOPHILS ABSOLUTE AUTO 0.17 K/mm3 (0.00-0.68); EOSINOPHILS PERCENT AUTO 1 % (0-6); Hematocrit 33.2 % (33.0-51.0); Hemoglobin 10.8 g/dL (11.5-16.0); IMMATURE GRAN ABSOLUTE AUTO 0.11 K/mm3 (0.00-0.10); IMMATURE GRAN PERCENT AUTO 1 % (0-1); LYMPHOCYTES ABSOLUTE AUTO 2.48 K/mm3 (0.84-5.20); LYMPHOCYTES PERCENT AUTO 20 % (21-46); MONOCYTES ABSOLUTE AUTO 0.82 K/mm3 (0.16-1.47); MONOCYTES PERCENT AUTO 7 % (4-13); Mean Corpuscular HGB 29.8 pg (26.0-34.0); Mean Corpuscular HGB Conc 32.5 g/dL (31.5-36.5); Mean Corpuscular Volume 92 fL (80-100); Mean Platelet Volume 9.8 fL (9.1-12.4); NEUTROPHILS ABSOLUTE AUTO 8.93 K/mm3 (1.96-9.15); NEUTROPHILS PERCENT AUTO 71 % (41-73); Platelet Count 281 K/mm3 (150-400); RDW Coefficient Variation 15.5 % (11.7-14.2); RDW Standard Deviation 51.7 fL (35.1-46.3); Red Blood Cell Count 3.63 M/mm3 (3.80-5.20); White Blood Cell Count 12.55 K/mm3 (4.00-11.30)
[2023-06-26 06:55] LABS: Calcium, Blood 9.4 mg/dL (8.5-10.1); Creatinine, Blood 0.95 mg/dL (0.40-1.00); Potassium, Blood 3.7 mmol/L (3.5-5.5)
[2023-06-26 08:02] VITALS: BP 159/99
[2023-06-26] MEDS ORDERED: ACET325 PO (13:05)
[2023-06-26] MEDS ORDERED: XARELTO10 M1 PO (13:05)
--- NOTE | 2023-06-26 13:39 | NUR ---
DISCHARGE NOTE- PT AND SPOUSE WERE GIVEN VERBAL AND WRITTEN DISCHARGE INSTRUCTIONS, MEDS FAXED TO [facility] PER PT REQUEST. PT AND SPOUSE ESCORTED OUT VIA WC BY STAFF PHYSICAL THERAPY ASSISTANT AND RN. AT THE DOOR THEY ATTEMPTED TO GET STAFF TO ASSIST THEM INTO THEIR VEHICLE. THEY WERE TOLD PRIOR TO LEAVING THE ROOM THAT, PER POLICY STAFF CAN NOT ASSIST DISCHARGED PATIENTS INTO VEHICLES. THE PT DAUGHTER INSISTED STAFF CHAPIN THE DISCHARGE PROCESS TO GET THE PT OUT BY [id number]. PT WAS LEAVING THE ROOM BY [id number] AND THE DAUGHTER CALLED SAYING SHE WAS GOING TO WORK. PT WAS INSISTENT SHE WAS LEAVING NOW. SPOUSE HAD BROUGHT THE PT PERSONAL WC, THEN HE DECLINED TO GET OUT OF IT SAYING HE NEEDED IT, STAFF ASSISTED HIM BY PROVIDING A HOSPITAL WC AND PUSHING HIM OUT TO THE PT ENTRANCE. THE DAUGHTER ARRIVED AND WALKED ACROSS TO THE PT ENTRANCE AND TOOK THE KEYS FROM THE PT SPOUSE, TO BRING THE VEHICLE UP TO LOAD THE PT.
== END 2023-06-26 13:25 | disposition home health service (06) | DRG 177 ==
LOC: ER 01:57 → MEDS 05:44 → ICUE 05:44 → MEDS 21:58
PROVIDERS: Family Medicine; Internal Medicine; Student in an Organized Health Care Education/Training Program; ADMIT Internal Medicine
PROC: XW033E5 Introduction of Remdesivir Anti-infective into Peripheral Vein, Percutaneous Approach, New Technology Group 5 (ICD-10-PCS; principal; 2023-06-22)
PROC: 3E0333Z Introduction of Anti-inflammatory into Peripheral Vein, Percutaneous Approach (ICD-10-PCS; 2023-06-22)
PROC: 8E0ZXY6 Isolation (ICD-10-PCS; 2023-06-22)
PROC: 3E033XZ Introduction of Vasopressor into Peripheral Vein, Percutaneous Approach (ICD-10-PCS; 2023-06-22)
PROC: 5A09357 Assistance with Respiratory Ventilation, Less than 24 Consecutive Hours, Continuous Positive Airway Pressure (ICD-10-PCS; 2023-06-25)
DX: U07.1 COVID-19 (principal); G92.8 Other toxic encephalopathy; E87.0 Hyperosmolality and hypernatremia; E87.20 Acidosis, unspecified; N17.9 Acute kidney failure, unspecified; N13.2 Hydronephrosis with renal and ureteral calculous obstruction; N39.0 Urinary tract infection, site not specified; E87.6 Hypokalemia; E83.39 Other disorders of phosphorus metabolism; E88.09 Other disorders of plasma-protein metabolism, not elsewhere classified; J44.9 Chronic obstructive pulmonary disease, unspecified; K21.9 Gastro-esophageal reflux disease without esophagitis; E78.5 Hyperlipidemia, unspecified; I48.91 Unspecified atrial fibrillation; E83.42 Hypomagnesemia; W19.XXXA Unspecified fall, initial encounter; E86.0 Dehydration; B85.2 Pediculosis, unspecified; N18.30 Chronic kidney disease, stage 3 unspecified; I12.9 Hypertensive chronic kidney disease with stage 1 through stage 4 chronic kidney disease, or unspecified chronic kidney disease; H16.429 Pannus (corneal), unspecified eye; K46.9 Unspecified abdominal hernia without obstruction or gangrene; D63.1 Anemia in chronic kidney disease; Z91.048 Other nonmedicinal substance allergy status; Z90.49 Acquired absence of other specified parts of digestive tract; Z98.890 Other specified postprocedural states; Z90.710 Acquired absence of both cervix and uterus; Z98.84 Bariatric surgery status; Z91.041 Radiographic dye allergy status; Z79.899 Other long term (current) drug therapy; Z79.51 Long term (current) use of inhaled steroids; Z79.2 Long term (current) use of antibiotics
CPT/HCPCS: 36415; 70450; 71045; 74176; 80048; 80053; 80069; 81001; 83605; 83735; 84145; 84295; 84484; 85025; 85379; 87040; 87086; 93005; 93010; 94660; 94762; 96361; 96365; 96366; 96368; 96376; 97110; 97116; 97162; 97165; 97530; 97535; 99285-25; A9270; C1751; J0248; J0696; J1100; J1956; J2405; J3475; J3480; J7030; J7050; J7060; P9612

== ENCOUNTER 2023-07-15 19:20 | Inpatient (IN) | payer OTHER ==
[~2023-07-15] VITALS: Ht 149.9 cm; Wt 86.9 kg
[~2023-07-15 19:20] MED LIST changes: +ACET325 PO; +BENZONATATE100 MG PO; +CYMBALTA30 M2 PO; +METO50ER PO; +MOBIC15 MG PO; +XARELTO10 M1 PO
[2023-07-15 19:48] LABS: BASOPHILS ABSOLUTE AUTO 0.07 K/mm3 (0.00-0.23); BASOPHILS PERCENT AUTO 1 % (0-2); EOSINOPHILS ABSOLUTE AUTO 0.25 K/mm3 (0.00-0.68); EOSINOPHILS PERCENT AUTO 2 % (0-6); Hematocrit 37.4 % (33.0-51.0); Hemoglobin 12.4 g/dL (11.5-16.0); IMMATURE GRAN ABSOLUTE AUTO 0.06 K/mm3 (0.00-0.10); IMMATURE GRAN PERCENT AUTO 0 % (0-1); LYMPHOCYTES ABSOLUTE AUTO 2.34 K/mm3 (0.84-5.20); LYMPHOCYTES PERCENT AUTO 16 % (21-46); MONOCYTES ABSOLUTE AUTO 1.08 K/mm3 (0.16-1.47); MONOCYTES PERCENT AUTO 8 % (4-13); Mean Corpuscular HGB 30.9 pg (26.0-34.0); Mean Corpuscular HGB Conc 33.2 g/dL (31.5-36.5); Mean Corpuscular Volume 93 fL (80-100); Mean Platelet Volume 9.9 fL (9.1-12.4); NEUTROPHILS ABSOLUTE AUTO 10.63 K/mm3 (1.96-9.15); NEUTROPHILS PERCENT AUTO 74 % (41-73); Platelet Count 281 K/mm3 (150-400); RDW Coefficient Variation 16.6 % (11.7-14.2); RDW Standard Deviation 56.9 fL (35.1-46.3); Red Blood Cell Count 4.01 M/mm3 (3.80-5.20); White Blood Cell Count 14.43 K/mm3 (4.00-11.30)
[2023-07-15 20:07] LABS: Albumin, Blood 1.8 g/dL (3.4-5.0); Albumin/Globulin Ratio 0.4 (0.8-1.8); Bilirubin, Total 0.8 mg/dL (0.1-1.0); Bun/Creatinine Ratio 9.9 (12.0-20.0); Creatinine, Blood 1.01 mg/dL (0.40-1.00); Globulin, Blood 4.7 g/dL (2.2-4.0); Potassium, Blood 3.1 mmol/L (3.5-5.5); Total Protein, Blood 6.5 g/dL (6.4-8.2)
[2023-07-15 20:23] LABS: Source, Urine Fem Cath
[2023-07-15 20:37] LABS: Blood, Urine 5+ (Neg); Glucose Qualitative, Urine Neg (Neg); Ketones, Urine 1+ (Neg); Leukocyte Esterase, Urine 3+ (Neg); Nitrite, Urine Neg (Neg); Protein, Urine 3+ (Neg); Urobilinogen, Urine 2+ (Normal)
[2023-07-15 21:06] LABS: Bilirubin, Urine 1+ (Neg)
[2023-07-15 21:07] LABS: Appearance, Urine Turbid (Clear); Color, Urine Amber (P-Yellow)
[2023-07-15 21:09] LABS: Amorphous Light (0-Heavy); Bacteria Many /hpf; Red Blood Cells, Urine 25-50 /hpf (0-2); Squamous Epithelial Cells Few /hpf (Few); White Blood Cells, Urine TNTC /hpf (0-5)
[2023-07-16 00:42] VITALS: BP 133/96
--- NOTE | 2023-07-16 00:45 | NUR ---
ADMIT NOTE; PT ARRIVES FROM ED VIA GURNEY. THE PT IS AXO X3 UPON ADMIT AND IS TRANSFERED FROM THE GURNEY TO THE HOSPITAL BED VIA SLIDER SHEET. THE PTS PERSONAL HYGIENE IS VERY BAD. PT ARRIVES W/ MATTED HAIR, CRUSTED AND PEELING SKIN AROUND LIPS, GOOEY EYES, SOILED CLOTHING AND AN ODOROUS SMELL. THE PT DENIES ANY PAIN, SOB OR N/V UPON ADMIT. THE PT IS ABLE TO REST INTO BED COMFORTABLY AFTER A BED BATH, THE BED IS IN THE LOWEST POSITION AND THE CALL LIGHT IS AT BEDSIDE. THE BED ALARM IS ON FOR PT SAFETY. FIRE RISK ASSESSED, THE PT DENIES HAVING AND POSSIBLE IGNITION SOURCES IN HER POSSESSION AT THIS TIME.
[2023-07-16 03:18] VITALS: BP 114/62
--- NOTE | 2023-07-16 04:20 | NUR ---
SHIFT SUMMARY; NO ACUTE CHANGES SINCE ADMIT. THE PT IS AXO X2-3 AND BEDREST R/T INCREASED WEAKNESS X1 MONTH SINCE PRIOR D/C FROM HOSPITAL. THE PT HAS BEEN SAYING OVER AND OVER AGAIN THAT SHE IS MISSING HER [place] RING, UNSURE OF WHERE SHE HAD IT LAST. ASSISTANT [employer]ORE [employer] CALLED DOWN TO ED TO SEE IF THEY FOUND HER [place] RING BY CHANCE. PT AT TIMES BELIEVES SHE HAD IT ON WHILE IN THE ED, AT OTHER TIMES SHE BELIEVES HER DAUGHTER HAS THE RING AND IS GETTING IT CLEANED. PT HAS DENIED ANY PAIN THIS SHIFT. PTS OVERALL HYGIENE IS VERY POOR, MULTIPLE RASHES AND WOUNDS, PICTURES OF WOUNDS ARE IN THE CHART. THE PT DENIES ANY SOB, CHEST PAIN/PRESSURE, N/V OR PAIN THIS SHIFT. CURRENTLY THE PT IS SLEEPING IN BED WITH CPAP IN PLACE, O2 SATS ARE >92%. THE PTS BED IS IN THE LOWEST POSITION, BED ALARM IS ON FOR SAFETY AND THE CALL LIGHT IS WITHIN REACH. FIRE SAFETY ROUNDS COMPLETED.
[2023-07-16 07:19] LABS: Bun/Creatinine Ratio 11.8 (12.0-20.0); Calcium, Blood 8.4 mg/dL (8.5-10.1); Creatinine, Blood 0.85 mg/dL (0.40-1.00); Potassium, Blood 3.9 mmol/L (3.5-5.5)
[2023-07-16 07:51] VITALS: BP 139/94
[2023-07-16 11:15] LABS: BASOPHILS ABSOLUTE AUTO 0.12 K/mm3 (0.00-0.23); BASOPHILS PERCENT AUTO 1 % (0-2); EOSINOPHILS ABSOLUTE AUTO 0.25 K/mm3 (0.00-0.68); EOSINOPHILS PERCENT AUTO 1 % (0-6); Hematocrit 34.2 % (33.0-51.0); Hemoglobin 11.1 g/dL (11.5-16.0); IMMATURE GRAN ABSOLUTE AUTO 0.07 K/mm3 (0.00-0.10); IMMATURE GRAN PERCENT AUTO 0 % (0-1); LYMPHOCYTES ABSOLUTE AUTO 1.76 K/mm3 (0.84-5.20); LYMPHOCYTES PERCENT AUTO 9 % (21-46); MONOCYTES ABSOLUTE AUTO 1.74 K/mm3 (0.16-1.47); MONOCYTES PERCENT AUTO 9 % (4-13); Mean Corpuscular HGB Conc 32.5 g/dL (31.5-36.5); Mean Corpuscular Volume 96 fL (80-100); Mean Platelet Volume 10.1 fL (9.1-12.4); NEUTROPHILS ABSOLUTE AUTO 14.72 K/mm3 (1.96-9.15); NEUTROPHILS PERCENT AUTO 79 % (41-73); Platelet Count 284 K/mm3 (150-400); RDW Coefficient Variation 17.2 % (11.7-14.2); RDW Standard Deviation 59.8 fL (35.1-46.3); Red Blood Cell Count 3.58 M/mm3 (3.80-5.20); White Blood Cell Count 18.66 K/mm3 (4.00-11.30)
[2023-07-16 12:09] LABS: Percent Saturation 16.6 % (15.0-50.0)
[2023-07-16 15:41] VITALS: BP 129/82
--- NOTE | 2023-07-16 18:27 | NUR ---
SHIFT SUMMARY PT AOX3 DURING THE DAY, AOX1 THIS EVENING. THE EVENING HAS CONTINUED, SHE HAS BECOME MORE CONFUSED. IV FLUIDS STARTED TODAY, PG PLACED BUT IT DOES NOT DRAW. AT THE BEDSIDE TODAY. APS INVOLVED IN HER CASE. SHE IS ON BR AT THIS TIME. WOUND CARE CONSULT COMPLETED AND ORDERS FOR WOUND CARE COMPLETED AND ORDERS IN THE CHART. ROCHELLE PATENT AND CHANGED THIS SHIFT. CALL LIGHT WITHIN REACH, BED IN THE LOWEST POSITION. WILL REPORT TO ONCOMING NURSE.
[2023-07-16 19:38] VITALS: BP 120/62
[2023-07-17 04:12] VITALS: BP 144/65
[2023-07-17 04:56] LABS: BASOPHILS ABSOLUTE AUTO 0.08 K/mm3 (0.00-0.23); BASOPHILS PERCENT AUTO 1 % (0-2); EOSINOPHILS ABSOLUTE AUTO 0.41 K/mm3 (0.00-0.68); EOSINOPHILS PERCENT AUTO 3 % (0-6); Hematocrit 30.9 % (33.0-51.0); IMMATURE GRAN ABSOLUTE AUTO 0.05 K/mm3 (0.00-0.10); IMMATURE GRAN PERCENT AUTO 0 % (0-1); LYMPHOCYTES ABSOLUTE AUTO 1.97 K/mm3 (0.84-5.20); LYMPHOCYTES PERCENT AUTO 15 % (21-46); MONOCYTES ABSOLUTE AUTO 1.26 K/mm3 (0.16-1.47); MONOCYTES PERCENT AUTO 10 % (4-13); Mean Corpuscular HGB 30.2 pg (26.0-34.0); Mean Corpuscular HGB Conc 32.4 g/dL (31.5-36.5); Mean Corpuscular Volume 93 fL (80-100); Mean Platelet Volume 10.4 fL (9.1-12.4); NEUTROPHILS ABSOLUTE AUTO 9.09 K/mm3 (1.96-9.15); NEUTROPHILS PERCENT AUTO 71 % (41-73); Platelet Count 273 K/mm3 (150-400); RDW Standard Deviation 57.8 fL (35.1-46.3); Red Blood Cell Count 3.31 M/mm3 (3.80-5.20); White Blood Cell Count 12.86 K/mm3 (4.00-11.30)
[2023-07-17 05:15] LABS: Bun/Creatinine Ratio 9.6 (12.0-20.0); Calcium, Blood 8.9 mg/dL (8.5-10.1); Creatinine, Blood 0.94 mg/dL (0.40-1.00); Potassium, Blood 2.9 mmol/L (3.5-5.5)
--- NOTE | 2023-07-17 06:35 | NUR ---
SHIFT SUMMARY POSITIVE BLOOD CULTURE CRITICAL LAB RESULTS CALLED TO BRIAN DOMINGO. AT THIS TIME PTS HR WAS ELEVATED TO 120S-130S AND PT FREQUENTLY COMPLAINING OF HAVING TO PEE. PT UNABLE TO GO, BLADDER SCAN FOR [id number]. DISCUSSED WITH BRIAN DOMINGO AND HE STATED A SEWELL COULD BE INSERTED. WHEN GOING TO PLACE SEWELL PT WAS ACTUALLY ABLE TO VOID SPONTANEOUOSLY AND DID NOT REQUIRE SEWELL INSERTION. PT HR LATER WAS UP TO 185 ON THE CONTINOUS PULSE OX, PLACED PT ON TELE. TELE CALLED ONCE TO REPORT A BRIEF INCREASE OF HR TO 150'S FOR A MINUTE AND RESOLVED TO 110S-120S. PT HAD SEVERAL LIQUID BOWEL MOVEMENTS OVERNIGHT AND DID NOT SLEEP AT ALL. CONFUSED AND CONVINCED SHE NEEDED TO GET HER SHOES ON TO LEAVE. PT REDIRECTABLE, BUT DID NOT GET ANY SLEEP.
[2023-07-17 07:29] VITALS: BP 131/80
--- NOTE | 2023-07-17 09:44 | NUR ---
RN NOTE ABLE TO DO INCENTIVE SPIROMETER WITH OKAY TECHNIQUE AT 500ML.
--- NOTE | 2023-07-17 10:14 | NUR ---
MD ORDER ENTERED TO DISCONTINUE TELEMETRY ENTERED INTO [employer].
--- NOTE | 2023-07-17 15:01 | NUR ---
SHIFT SUMMARY MS PAGAN IS PLEASANTLY CONFUSED, ABLE TO TELL ME HER NAME AND TALKING ABOUT EVENTS FROM HER PAST. HER IS VISITING HER. [place] [facility] [place], CONTINENT OF LARGE VOID AND LOOSE STOOL. SAT UP IN THE RECLINER FOR LUNCH. PO FLUIDS ENCOURAGED FREQUENTLY. POOR APPETITE FOR LUNCH, ATE 25%. SUPPER CHANGED TO MECHANICAL SOFT DIET. PRESSURE SORES TO BOTH BUTTOCKS CLEANSED AND CLEAN MEPILEX'S APPLIED. WHILE IN BED ROLLED SIDE TO SIDE FOR PRESSURE RELIEF. BED LOW, CALL LIGHT IN REACH, BED ALARM ON.
[2023-07-17 16:05] VITALS: BP 124/87
[2023-07-17 19:39] VITALS: BP 128/69
[2023-07-18 05:22] VITALS: BP 138/74
[2023-07-18 06:03] LABS: BASOPHILS ABSOLUTE AUTO 0.04 K/mm3 (0.00-0.23); BASOPHILS PERCENT AUTO 0 % (0-2); EOSINOPHILS ABSOLUTE AUTO 0.53 K/mm3 (0.00-0.68); EOSINOPHILS PERCENT AUTO 5 % (0-6); Hematocrit 29.3 % (33.0-51.0); Hemoglobin 9.6 g/dL (11.5-16.0); IMMATURE GRAN ABSOLUTE AUTO 0.04 K/mm3 (0.00-0.10); IMMATURE GRAN PERCENT AUTO 0 % (0-1); LYMPHOCYTES ABSOLUTE AUTO 2.13 K/mm3 (0.84-5.20); LYMPHOCYTES PERCENT AUTO 21 % (21-46); MONOCYTES ABSOLUTE AUTO 1.09 K/mm3 (0.16-1.47); MONOCYTES PERCENT AUTO 11 % (4-13); Mean Corpuscular HGB 30.5 pg (26.0-34.0); Mean Corpuscular HGB Conc 32.8 g/dL (31.5-36.5); Mean Corpuscular Volume 93 fL (80-100); Mean Platelet Volume 9.9 fL (9.1-12.4); NEUTROPHILS PERCENT AUTO 62 % (41-73); Platelet Count 251 K/mm3 (150-400); RDW Coefficient Variation 17.1 % (11.7-14.2); RDW Standard Deviation 57.8 fL (35.1-46.3); Red Blood Cell Count 3.15 M/mm3 (3.80-5.20); White Blood Cell Count 10.13 K/mm3 (4.00-11.30)
--- NOTE | 2023-07-18 06:16 | NUR ---
SHIFT SUMMARY PT HR ON CONTINUOUS SPO2 RANGING FROM 90-124, WOULD OCCASIONALLY GO UP TO 180'S FOR ABOUT 30 SECONDS AND THEN LEVEL BACK DOWN TO 110-120. PT TOLERATED CPAP ALL NIGHT, HAVING SEVERAL LIQUID STOOLS, BUT DO NOT HAVE CHARACTERISTICS OF C.DIFF. NO OTHER EVENTS.
[2023-07-18 06:42] LABS: Bun/Creatinine Ratio 6.8 (12.0-20.0); Calcium, Blood 8.9 mg/dL (8.5-10.1); Creatinine, Blood 1.03 mg/dL (0.40-1.00); Magnesium, Blood 1.6 mg/dL (1.6-2.4); Potassium, Blood 3.2 mmol/L (3.5-5.5)
[2023-07-18 07:28] VITALS: BP 126/71
[2023-07-18 15:39] VITALS: BP 139/70
--- NOTE | 2023-07-18 17:10 | NUR ---
DAYSHIFT SUMMARY Patient alert & oriented x2. Patient verbalizing wanting to go home t/o the day. Patients at bedside all afternoon, patient stated she didn't remember seeing him. IV KCL administred today. 2x open wounds, bilat buttocks. Applied mepilex dressing. Vitals stable, will continue plan of care. Awaiting discharge planning.
[2023-07-18 20:07] VITALS: BP 111/58
[2023-07-19 04:31] VITALS: BP 130/96
[2023-07-19 05:53] LABS: BASOPHILS ABSOLUTE AUTO 0.06 K/mm3 (0.00-0.23); BASOPHILS PERCENT AUTO 1 % (0-2); EOSINOPHILS ABSOLUTE AUTO 0.49 K/mm3 (0.00-0.68); EOSINOPHILS PERCENT AUTO 5 % (0-6); Hemoglobin 9.9 g/dL (11.5-16.0); IMMATURE GRAN ABSOLUTE AUTO 0.04 K/mm3 (0.00-0.10); IMMATURE GRAN PERCENT AUTO 0 % (0-1); LYMPHOCYTES ABSOLUTE AUTO 1.83 K/mm3 (0.84-5.20); LYMPHOCYTES PERCENT AUTO 20 % (21-46); MONOCYTES ABSOLUTE AUTO 0.89 K/mm3 (0.16-1.47); MONOCYTES PERCENT AUTO 10 % (4-13); Mean Corpuscular HGB Conc 31.9 g/dL (31.5-36.5); Mean Corpuscular Volume 94 fL (80-100); Mean Platelet Volume 10.3 fL (9.1-12.4); NEUTROPHILS ABSOLUTE AUTO 5.88 K/mm3 (1.96-9.15); NEUTROPHILS PERCENT AUTO 64 % (41-73); Platelet Count 285 K/mm3 (150-400); RDW Coefficient Variation 16.9 % (11.7-14.2); White Blood Cell Count 9.19 K/mm3 (4.00-11.30)
[2023-07-19 06:19] LABS: Bun/Creatinine Ratio 6.6 (12.0-20.0); Calcium, Blood 9.2 mg/dL (8.5-10.1); Creatinine, Blood 0.9 mg/dL (0.40-1.00); Potassium, Blood 3.3 mmol/L (3.5-5.5)
--- NOTE | 2023-07-19 06:47 | NUR ---
SHIFT SUMMARY PT LAYING IN BED DURING BEDSIDE ROUNDS, PT ON BIODIESEL DIVISION MANAGER, SAT WNL T/O NIGHT, PT TOOK SCHEDULED MEDS WHOLE IN APPLE SAUCE WITHOUT PROBLEMS, REPOSITIONED PT Q2H AND CHANGED FOAM BANDAGES T/O NIGHT NEEDED, PT HAD A FEW LOOSE SMEARS IN THE NIGHT, PT AWAKE MOST OF THE NIGHT, PT ABLE TO FOLLOW SOME DIRECTIONS, PT HALLUCINATING AT BEGINNING OF SHIFT AND TALKING TO IMAGINARY PEOPLE, PUREWICK IN PLACE - ALYSA URINE, ENCOURAGED FLUDIS - PT DRANK SMALL AMOUNT WHEN OFFERED, BED LOW POSITION, CALL LIGHT WITHIN REACH, BED ALARM IN PLACE
--- NOTE | 2023-07-19 06:50 | NUR ---
NOTIFIED CHARGE NURSE THAT PT SELF REMOVED POWERGLIDE, PT CONFUSED AND AFRAID SHE WILL REPULL AND MOST LIKELY NEEDS ULTRASOUND GUIDED- IV WILL BE NOTIFIED THIS AM OF IV NEED
[2023-07-19 07:42] VITALS: BP 142/76
--- NOTE | 2023-07-19 09:00 | NUR ---
pt is very confused and hallucinating, constantly speaking to people not in room, but she will stop and speak to staff, but unable to state where she is, not able to follow commands, she attempted to climb out of bed once, unable to help us get her back in bed, lungs are dim t/o, resp even and unlabored, no cough noted, on r/a hrr, ppp faint, cap refill <3 sec, vs stable, afebrile, no iv site at this time as she removed it last night, called pcu for power glide, no edeama noted, ppp faint, btx4, hypoactive, incont, briefs and purwick in place skin has mepilex dressings to buttocks, maew, weak, mehdi, call light in reach.
[2023-07-19 16:10] VITALS: BP 153/96
--- NOTE | 2023-07-19 19:11 | NUR ---
pt was very busy this am, even attempting to climb out of bed, but settled when her spouce came in, did not want dinner, this evening, has been turned and changed, has remained confused, no acute changes this shift. call light in reach.
[2023-07-19 19:50] VITALS: BP 151/87
[2023-07-19 19:51] VITALS: BP 151/87
[2023-07-20] VITALS (7 sets, daily range): BP systolic 144–150; BP diastolic 76–98
--- NOTE | 2023-07-20 01:00 | NUR ---
NURSE NOTE PATIENT ASSESSMENT COMPLETED BY THIS RN. PATIENT REMAINS INCREASINGLY CONFUSED. CONFERRED WITH TARA STATOR TESTER NURSE TO MOVE PATIENT TO SCU FOR CLOSER EYES DUE TO CONFUSION. LICE FOUND ON PATIENT AND TREATMENT ORDERED. REPORT GIVEN TO NATA RN FOR INCOMING PATIENT.
[2023-07-20 02:54] LABS: Source, Urine Foley catheter
[2023-07-20 02:57] LABS: Bilirubin, Urine Neg (Neg); Blood, Urine 5+ (Neg); Glucose Qualitative, Urine Neg (Neg); Ketones, Urine Neg (Neg); Leukocyte Esterase, Urine 3+ (Neg); Nitrite, Urine Neg (Neg); Protein, Urine 1+ (Neg); Specific Gravity, Urine 1.015 (1.003-1.022); Urobilinogen, Urine NORM (Normal)
[2023-07-20 03:32] LABS: Appearance, Urine Hazy (Clear); Color, Urine Yellow (P-Yellow)
[2023-07-20 03:33] LABS: Bacteria Mod /hpf; Mucus Light (0-Heavy); Red Blood Cells, Urine 25-50 /hpf (0-2); Squamous Epithelial Cells Few /hpf (Few); White Blood Cells, Urine 50-100 /hpf (0-5)
--- NOTE | 2023-07-20 04:24 | NUR ---
PATIENT MOVED TO SCU FOR INCREASED CONFUSION AND RESTLESSNESS, AGITATION. PER REPORT FROM PRIOR NURSE PATIENT HAS BEEN HAVING PAIN/DISCOMFORT WITH URINATION. PATIENT NOTED TO HAVE AN ORDER FOR A STRAIGTH CATH, BLADDER SCAN >400. ATTEMPTED STRAIGHT CATH BUT WAS UNSUCCESSFUL. WITH PATIENT BEING CONFUSED AND RESTLESS, MYSELF AND CHARGE NURSE ANTICIPATE PATIENT WILL CONTINUE TO GIVE US TROUBLE WITH FUTURE STRAIGHT CATH. DR. PATEL MADE AWARE AND ORDER FOR SEWELL GIVEN. URINE SAMPLE SENT TO LAB. POST SEWELL PLACEMENT PATIENT HAS BEEN RESTING COMFORTABLY IN BED WITH AN OCCASIONAL CONGESTED COUGH. HOB SLIGHTLY ELEVATED. ON CONT PULSE OX (TOE SHE WILL TAKE OFF FINGER) SHE IS SUPPOSED TO WEAR CPAP AT NIGHT BUT DUE TO CONFUSION IS NOT. PATIENT FOUND TO HAVE LICE, TREATMENT DONE. BED BATH DONE, LINENS CHANGED. UNABLE TO MAKE NEEDS KNOWN. CALL LIGHT IN REACH. BED LOCKED IN LOW POSITION. STAGE 2 ULCERS TO BILATERAL BUTTOCKS. STAGE 3 TO COCCYX NOTED BUT APPEARS MORE LIKE STAGE 2.
[2023-07-20 06:54] LABS: Bun/Creatinine Ratio 8.5 (12.0-20.0); Creatinine, Blood 0.71 mg/dL (0.40-1.00); Potassium, Blood 3.5 mmol/L (3.5-5.5)
--- NOTE | 2023-07-20 10:01 | NUR ---
PT RESPONDS TO STIMULI WITH MOANING. SHE APPEARS VERY CONFUSED. NO VERBAL RESPONSE OTHER THAN MOANING. SHE IS UNABLE TO FOLLOW COMMANDS. OFFERED HER BREAKFAST AND DRINKS. SHE WAS UNABLE TO CLOSE HER MOUTH AROUND THE STRAW. SHE ALSO APPEARED FRIGHTEND TO EAT OR DRINK ALTHOUGH SHE NODDED HEAD YES WHEN ASKED IF SHE WAS HUNGRY. BECAUSE OF THIS ASPIRATION PRECAUTIONS I AM PLACING HER ON NPO STATUS FOR NOW. PO MEDS HELD THIS MORNING.
--- NOTE | 2023-07-20 15:05 | NUR ---
LATE ENTRY- PT TACHYCARDIC. RUNNING 100-150. NO TELE APPEARS SHE MAY BE IN PAIN. GRIMICE AND MOANING. UNABLE TO TAKE PO MEDS DUE TO ASPIRATION RISK. REPOSITIONED. DR. HUERTA NOTIFIED.
--- NOTE | 2023-07-20 15:28 | NUR ---
PT STILL NO ORAL INTAKE, TACHYCARDIC MAINTAINING ABOVE 110. DR. HUERTA NOTIFIED. WILL RESTART TELE MONITOR AND START FLUIDS.
--- NOTE | 2023-07-20 17:17 | NUR ---
LATE ENTRY PER ASPHALT DAUBER PT HR SUSTAINING ABOVE 120. PRN HYDRALAZINE GIVEN. RT CALLED TO BEDSIDE TO SET UP CPAP MACHINE. TREATED PAIN PER EMAR.
--- NOTE | 2023-07-20 19:24 | NUR ---
SHIFT SUMMARY PT PLACED BACK ON TELE DUE TO TACHYCARDIA. PT IN ABIB/AFLUTTER WITH HR >120. TREATED PER EMAR. PT MOANING AND APPEARED TO BE IN PAIN. TREATED PER EMAR. PER SPOUSE, PT DOES TAKE A PRESCRIBED PAIN MEDICAION BUT HE DID NOT KNOW WHY OR THE MED. SEWELL DRAINING TO GRAVITY. [id number]. WOUND CARE DONE PER ORDER. AT THE END OF THE SHIFT PT WAS MUMMBLING FEW WORDS. NO MEANINGFUL CONVERSATION. CPAP AT BEDSIDE. RT PLACED CPAP ON PT BUT SHE CONTINUED TO PULL CPAP OFF. RT AWARE. SATTING >95% ON RA. PT RECEIVED 500ML BOLUS LR. LR INFUSING AT 75ML/HR. PT IS UNABLE TO MAKE NEEDS KNOWN. BED IS IN THE LOWEST POSITION WITH CALL LIGHT IN REACH.
[2023-07-21 01:29] VITALS: BP 139/103
--- NOTE | 2023-07-21 04:57 | NUR ---
SHIFT SUMMARY PATIENT WAS MORE CONFUSED, RESTLESS AND AGITATED LAST NIGHT. FENTANYL X2 WAS GIVEN FOR SUSPECTED PAIN FROM FLACC SCALE. METOPROLOL PRN HR >120 GIVEN X1. TRAINING COORDINATOR PROVIDER DR. DOMINGO NOTIFIED PRIOR TO MIDNIGHT AND PRN HALDOL WAS ORDERED BUT PATIENT CONTINUED TO BE RESTLESS AND AGITATED HAVING VISUAL HALLUCINATIONS OF THINGS ON CEILING AND PULLING AT LINES AND TELE LEADS. TRAINING COORDINATOR PROVIDER DR. PATEL NOTIFIED AND MADE AWARE. 1X DOSE OF IM GEODON ORDERED AND THAT CALMED PATIENT. SHE IS NOW SLEEPING. RR AT 14. REQUIRING SUPPLEMENTAL O2 OF 2L NC WHILE SLEEPING DUE TO MOUTH BREATHING. SHE IS SATTING AT 98% ON CONTINUOUS PULSE OX. PATIENT TYPICALLY USES CPAP BUT HAS NOT HERE DUE TO CONFUSION. SEWELL IN PLACE FOR RETENTION. PATIENT NPO DUE TO INCREASED CONFUSION AND INABILITIY TO FOLLOW COMMANDS WITH INTAKE. PATIENT HAS A CONGESTED COUGH, THIN MUCUS. NOT ALLOWING US TO DO ORAL CARE THIS SHIFT, FIGHTS US AND PUSHES US AWAY. UNABLE TO MAKE NEEDS KNOWN. BED LOCKED IN LOW POSITION. REPOSITIONING DUE TO BEDREST. EDEMA TO BILAT LOWER EXT, AND ABDOMEN. LR INFUSING. WOUNDS TO BILATERAL BUTTOCKS MEPILEX CHANGED DUE TO SOILAGE BARRIER CREAM APPLIED
[2023-07-21 05:42] VITALS: BP 148/116
[2023-07-21 07:59] VITALS: BP 156/100
[2023-07-21 09:43] LABS: BASOPHILS ABSOLUTE AUTO 0.06 K/mm3 (0.00-0.23); BASOPHILS PERCENT AUTO 1 % (0-2); EOSINOPHILS ABSOLUTE AUTO 0.57 K/mm3 (0.00-0.68); EOSINOPHILS PERCENT AUTO 5 % (0-6); Hematocrit 30.7 % (33.0-51.0); Hemoglobin 10.2 g/dL (11.5-16.0); IMMATURE GRAN ABSOLUTE AUTO 0.05 K/mm3 (0.00-0.10); IMMATURE GRAN PERCENT AUTO 0 % (0-1); LYMPHOCYTES ABSOLUTE AUTO 1.75 K/mm3 (0.84-5.20); LYMPHOCYTES PERCENT AUTO 15 % (21-46); MONOCYTES ABSOLUTE AUTO 1.04 K/mm3 (0.16-1.47); MONOCYTES PERCENT AUTO 9 % (4-13); Mean Corpuscular HGB Conc 33.2 g/dL (31.5-36.5); Mean Corpuscular Volume 93 fL (80-100); Mean Platelet Volume 9.3 fL (9.1-12.4); NEUTROPHILS ABSOLUTE AUTO 7.97 K/mm3 (1.96-9.15); NEUTROPHILS PERCENT AUTO 70 % (41-73); Platelet Count 291 K/mm3 (150-400); RDW Standard Deviation 57.5 fL (35.1-46.3); Red Blood Cell Count 3.29 M/mm3 (3.80-5.20); White Blood Cell Count 11.44 K/mm3 (4.00-11.30)
[2023-07-21 10:20] LABS: Albumin, Blood 1.8 g/dL (3.4-5.0); Anion Gap 9 mmol/L (6-16); Blood Urea Nitrogen 4 mg/dL (8-24); Bun/Creatinine Ratio 6.2 (12.0-20.0); CO2, Blood 27 mmol/L (21-32); Calcium, Blood 8.9 mg/dL (8.5-10.1); Chloride, Blood 109 mmol/L (98-108); Creatinine, Blood 0.64 mg/dL (0.40-1.00); Glomerular Filtration Rate 93 (60-); Glucose, Blood 84 mg/dL (70-99); Phosphorus, Blood 3.1 mg/dL (2.5-4.9); Potassium, Blood 3.3 mmol/L (3.5-5.5); Sodium, Blood 145 mmol/L (136-145)
[2023-07-21 12:14] VITALS: BP 136/89
[2023-07-21 16:03] VITALS: BP 170/78
[2023-07-21 17:22] VITALS: BP 165/94
--- NOTE | 2023-07-21 18:08 | NUR ---
SHIFT SUMMARY PT EXTREMELY CONFUSED AND RESTLESS T/O DAY. PULLING ON LINE AND CORDS. PRIMARILY HER TELE BOX. PO MEDS AND MEALS HELD DUE TO INABILITY TO FOLLOW DIRECTIONS. THERAPIES ALSO HELD TODAY FOR THIS REASON. IV METOPROLOL GIVEN AROUND 1200 AND 1800 TODAY TO HELP WITH SUSTAINING HR ABOVE 120. THIS HELPED FOR SOME TIME. REMAINS IN AFLUTTER AT THIS TIME PER TELE. PALLIATIVE CARE ON BOARD NOW AND PLAN TO DC HOSPICE WHEN READY FOR DC. FAMILY WANTING TO KEEP PATIENT A FULL CODE AT THIS TIME HOWEVER. PT SATING IN THE 90S ON RA AT THIS TIME. APPEARS TO BE MUMBLING AND POSSIBLY HALLUCINATING IN ROOM AT THIS TIME. PT HAS HANDS IN THE AIR OFTEN WAVING AT SOMETHING. NO OTHER ACUTE CHANGES IN ASSESSMENT AT THIS TIME. VS REVIEWED. CALL LIGHT IN REACH. CT OF HEAD COMPLETED TODAY.
--- NOTE | 2023-07-21 18:35 | NUR ---
pt family want to transition home on hospice. pt has had worsining cough and wrsening dementia. is struggling to accept DNR. He is very frail and elderly and states he loves her and wants that for her. Did not press him. Daughters at bedside very attentive they work as caregivers. The [facility] as they have a relationship with their staff.
[2023-07-22 06:57] LABS: BASOPHILS ABSOLUTE AUTO 0.07 K/mm3 (0.00-0.23); BASOPHILS PERCENT AUTO 1 % (0-2); EOSINOPHILS ABSOLUTE AUTO 0.61 K/mm3 (0.00-0.68); EOSINOPHILS PERCENT AUTO 5 % (0-6); Hemoglobin 10.3 g/dL (11.5-16.0); IMMATURE GRAN ABSOLUTE AUTO 0.05 K/mm3 (0.00-0.10); IMMATURE GRAN PERCENT AUTO 0 % (0-1); LYMPHOCYTES ABSOLUTE AUTO 1.81 K/mm3 (0.84-5.20); LYMPHOCYTES PERCENT AUTO 16 % (21-46); MONOCYTES ABSOLUTE AUTO 1.02 K/mm3 (0.16-1.47); MONOCYTES PERCENT AUTO 9 % (4-13); Mean Corpuscular HGB 30.8 pg (26.0-34.0); Mean Corpuscular HGB Conc 33.2 g/dL (31.5-36.5); Mean Corpuscular Volume 93 fL (80-100); Mean Platelet Volume 9.2 fL (9.1-12.4); NEUTROPHILS ABSOLUTE AUTO 7.87 K/mm3 (1.96-9.15); NEUTROPHILS PERCENT AUTO 69 % (41-73); Platelet Count 279 K/mm3 (150-400); RDW Coefficient Variation 16.8 % (11.7-14.2); RDW Standard Deviation 56.9 fL (35.1-46.3); Red Blood Cell Count 3.34 M/mm3 (3.80-5.20); White Blood Cell Count 11.43 K/mm3 (4.00-11.30)
--- NOTE | 2023-07-22 07:14 | NUR ---
Shift Summary Pt AOx0, she was awake pulling off clothes and pulling on lines for most of the night. Around 0430 we turned her onto her left side and put pillows behind her back to keep her on her side and she fell asleep within 30 seconds. While asleep on RA her O2 saturation dropped to 80, she was put on 2L O2 NC and O2 sat remained above 95%. Pt is NPO d/t asperation risk, we took her BG at 0000 and it was 83. Pt has a Galvan which is patent, no s/s of infection. Pt rcving LR @ 75. Pt hypertensive and HR sustained above 120 twice, both times I was able to give IV Metoprolol as ordered.
[2023-07-22 07:30] LABS: Albumin, Blood 1.7 g/dL (3.4-5.0); Anion Gap 5 mmol/L (6-16); Blood Urea Nitrogen 5 mg/dL (8-24); Bun/Creatinine Ratio 7.1 (12.0-20.0); CO2, Blood 29 mmol/L (21-32); Calcium, Blood 8.8 mg/dL (8.5-10.1); Chloride, Blood 111 mmol/L (98-108); Glomerular Filtration Rate 91 (60-); Glucose, Blood 74 mg/dL (70-99); Phosphorus, Blood 2.5 mg/dL (2.5-4.9); Potassium, Blood 3.4 mmol/L (3.5-5.5); Sodium, Blood 145 mmol/L (136-145)
[2023-07-22 08:00] VITALS: BP 126/111
[2023-07-22 09:36] VITALS: BP 156/105
--- NOTE | 2023-07-22 14:40 | NUR ---
Goals of Care Discussion New POLST form filled out with spouse and dtr. Spouse elected DNR/Comfort. POLST left at pt's room for provider signature. PCRN was requested by care management to fill out a POLST form. This RN was greeted in the room by pt's spouse and pt's dtr, HeatherDaisy Bhatti was lying supine in hospital bed with her hands reaching straight up in the air speaking nonsensical. During Palliative Care visit pt started pulling at blankets. Wadded a blanket and tossed to her dtr at bedside. Theraputic conversation with spouse, he became tearful talking about their marriage and blessed life together. Sp expressed his wish for his (pt) to be comfortable for what time she has left. Gentle conversation surrounding comfort care and hospice care. Primary RN, Kandy and this PC RN spoke with Dr. Valle this afternoon to discuss Mrs. May's case. Placed DNR order per Dr. Tori donaldson. Additional orders placed for comfort care, comfort care order set and discontinuation of maintenance medications per Dr. Tori donaldson. Mrs. May's spouse elects for comfort care and is still in agreement for hospice discharge.
--- NOTE | 2023-07-22 18:08 | NUR ---
SHIFT SUMMARY PT TRANSITIONED TO COMFORT CARE TODAY. PLAN FOR PATIENT TO DC WITH HOSPICE TOMORROW. TELE AND CONT PULSE OX REMOVED. IV FLUIDS STOPPED. PATIENT MEDICATED FOR ANXIETY TWICE THIS SHIFT. FAMILY AT BEDSIDE MOST THE DAY. REPOSITION Q2 HOURS. PT REMAINS EXTREMELY CONFUSED, MUMBLES TO SELF AND HALLUCINATING INTERMITTENLY. NO OTHER ACUTE CHANGES IN ASSESSMENT AT THIS TIME.
--- NOTE | 2023-07-23 05:29 | NUR ---
Shift Summary Pt now on comfort care. She had recieved some Ativan during the day and was very somnolent t/o the night. She started moaning around 0230 and I gave her 5mg Roxinol and repositioned her on her side. She has been sleeping comfortably since. She has wet sounding lungs with a moist cough, I gave PRN atropine SL once and it seemed to help. Galvan in place, patent, draining urine, no s/s of infection. While awake pt still AOx0, unable to verbalize needs or understand questions or commands.
[2023-07-23] MEDS ORDERED: ATROPINE SULFATE2 M1 SL (12:03)
[2023-07-23] MEDS ORDERED: TRANSDERM-SCOP1 EA13 TD (12:03)
--- NOTE | 2023-07-23 13:31 | NUR ---
DISCHARGE NOTE- PT DAUGHTER AT THE BEDSIDE. VERBAL AND WRITTEN DISCHARGE INFORMATION PROVIDED. PG DC'D PRIOR TO DISCHARGE. ATTENDS CHANGED, CATH AND MAVIS CARE PERFORMED, MEPILEX'S ON BOTTOM CHANGED D/T SOILING. PT WAS DISCHARGED HOME ON HOSPICE, TAKEN VIA GURNEY TRANSPORT. DAUGHTER LEFT JUST AHEAD OF PT AND IS AWARE OF DISCHARGE TIME.
== END 2023-07-23 12:40 | disposition hospice, home (50) | DRG 871 ==
LOC: ER 19:20 → MEDS 23:33 → ENPENDDIS 07-23 10:31 → MEDS 07-23 12:40
PROVIDERS: Internal Medicine; Internal Medicine Endocrinology, Diabetes & Metabolism; Student in an Organized Health Care Education/Training Program; ADMIT Internal Medicine
PROC: 0T9B70Z Drainage of Bladder with Drainage Device, Via Natural or Artificial Opening (ICD-10-PCS; principal; 2023-07-15)
PROC: 3E03329 Introduction of Other Anti-infective into Peripheral Vein, Percutaneous Approach (ICD-10-PCS; 2023-07-15)
DX: A41.81 Sepsis due to Enterococcus (principal); G92.8 Other toxic encephalopathy; J18.9 Pneumonia, unspecified organism; N39.0 Urinary tract infection, site not specified; J44.0 Chronic obstructive pulmonary disease with (acute) lower respiratory infection; I48.20 Chronic atrial fibrillation, unspecified; N17.9 Acute kidney failure, unspecified; E87.0 Hyperosmolality and hypernatremia; F05 Delirium due to known physiological condition; Z51.5 Encounter for palliative care; E66.01 Morbid (severe) obesity due to excess calories; G62.9 Polyneuropathy, unspecified; L89.322 Pressure ulcer of left buttock, stage 2; L89.312 Pressure ulcer of right buttock, stage 2; L89.159 Pressure ulcer of sacral region, unspecified stage; B95.62 Methicillin resistant Staphylococcus aureus infection as the cause of diseases classified elsewhere; R65.20 Severe sepsis without septic shock; I12.9 Hypertensive chronic kidney disease with stage 1 through stage 4 chronic kidney disease, or unspecified chronic kidney disease; E86.0 Dehydration; F03.90 Unspecified dementia, unspecified severity, without behavioral disturbance, psychotic disturbance, mood disturbance, and anxiety; N18.2 Chronic kidney disease, stage 2 (mild); E87.6 Hypokalemia; Z90.49 Acquired absence of other specified parts of digestive tract; Z74.01 Bed confinement status; Z91.041 Radiographic dye allergy status; Z91.048 Other nonmedicinal substance allergy status; Z79.899 Other long term (current) drug therapy; Z79.01 Long term (current) use of anticoagulants; Z98.84 Bariatric surgery status; Z86.16 Personal history of COVID-19; Z68.35 Body mass index [BMI] 35.0-35.9, adult
CPT/HCPCS: 36415; 70450; 71045; 80048; 80053; 80069; 81001; 82306; 82607; 82728; 82746; 82947; 83540; 83550; 83605; 83735; 84145; 84484; 85025; 87040; 87077; 87086; 87106; 87186; 93005; 93010; 94660; 94762; 96374; 99285-25; A9270; C1751; J0696; J0878; J1630; J2060; J3010; J3370; J3480; J3486; J7030; J7042; J7050; J7120